=== PATIENT | male | born 1945 | race Caucasian/White ===

== ENCOUNTER 2018-04-08 15:22 | Observation (INO) ==
--- NOTE | 2018-04-08 15:43 | Emergency Department Note ---
Disposition Clinical Impression: Numbness and tingling in left hand, Elevated creatine kinase Disposition: Admitted As Inpatient Condition: Good Forms: ED Satisfaction Letter Time of Disposition: 17:21 Neuro HPI - General Chief Complaint: ED Neuro Symptoms/Deficit Stated Complaint: possible TIA Time Seen by Provider: 04/08/18 15:28 Source: patient, EMS Mode of arrival: ambulatory Limitations: no limitations Nursing Notes Reviewed: Yes Vital Signs Reviewed: Yes - History of Present Illness HPI Narrative: Patient is a 73-year-old male with past medical history of hypertension, hyperlipidemia, previous SC, endarterectomy and carotid stent placement, A. shannan , currently on Eliquis, previous CVA. Presents today due to concern for possible TIA. He states that he was up this morning, drinking coffee, was sitting down, started having some tingling in his left pointer finger. This progressed to all fingers of the left hand. Denies any additional numbness, tingling, weakness anywhere else. During that time, he also had some left shoulder pain. Denies any recent falls, injuries, chest pain, shortness breath , nausea, vomiting, fevers, diarrhea, abdominal pain. Denies any new slurred speech or facial droop. He does have a history of a previous CVA that has left him with chronic left-sided facial droop. This is not worse than usual. He also admits to mild generalized headache that started around the same time as the nuerologic symptoms. His was present and believes that she did not notice any confusion, difficulty with speech or any worsening of his facial droop. He states that this episode lasted about 30 minutes and then went away. He does note that he has some mild chronic pain in the left shoulder but has never had any symptoms like this before. He denies any recurrence of these symptoms. He was referred here with concern for possible TIA. - Related Data Allergies/Adverse Reactions: Allergies Allergy/AdvReac Type Severity Reaction Status Date / Time codeine Allergy See Verified 04/08/18 15:29 Comments Procaine [From Novocain] Allergy See Verified 04/08/18 15:29 Comments All systems ED: reviewed and negative except as stated. Constitutional: Denies: fever Cardiovascular: Denies: chest pain Respiratory: Denies: cough, dyspnea, wheezes Gastrointestinal: Denies: abdominal pain, nausea, vomiting, diarrhea Integumentary: Denies: rash Neurological: Reports: numbness, paresthesias. Denies: headache, weakness Past Medical History - Past Medical History Attestation: Yes The following information was validated with the patient. Source: patient Medical history: Reports: atrial fibrillation, CVA, diabetes, hyperlipidemia, hypertension, myocardial infarction, renal disease, TIA Psychiatric history: Reports: no psych history - Social History Smoking Status: Former smoker Alcohol use: Reports: none Drug use: Reports: none Physical Exam - General Limitations: no limitations General appearance: alert, in no apparent distress - Head Head exam: atraumatic, normocephalic, normal inspection - Eye Eye exam: Present: PERRL, EOMI, other (chronic left eye and nasolabial droop) - ENT ENT exam: normal oropharynx, mucous membranes moist - Neck Neck exam: Present: normal inspection, full ROM, trachea midline. Absent: tenderness, meningismus - Chest Chest inspection: Present: normal inspection, symmetric chest wall rise - Respiratory Respiratory exam: Present: normal lung sounds bilaterally - Cardiovascular Cardiovascular exam: Present: regular rate, normal rhythm, normal heart sounds - Abdominal Exam Abdominal exam: Present: soft, Non-Tender. Absent: tenderness, distention, guarding, rebound, rigidity - Extremities Exam Extremities exam: Present: normal inspection, full ROM. Absent: tenderness, pedal edema - Neurological Exam Neurological exam: Present: alert, oriented X3, CN II-XII intact. Absent: motor sensory deficit - Expanded Neurological Exam Patient oriented to: Present: person, place, time Speech: Present: fluid speech Cranial nerves: EOM function (II, III, IV, ): Normal, facial sensation (V): Normal, facial palsy (VII): Abnormal Left (CHRONIC FOR PATIENT, left facial droop), spinal accessory function (XI): Normal, tongue deviation (XII): Normal Cerebellar function: finger to nose: Normal Motor strength - LUE: 5/5 Motor strength - RUE: 5/5 Motor strength - LLE: 5/5 Motor strength - RLE: 5/5 Sensory exam upper extremity: light touch: Normal Sensory exam lower extremity: light touch: Normal Coma Scale Eye Opening: Spontaneous Coma Scale Motor Response: Obeys Commands Coma Scale Verbal Response: Oriented Coma Scale Total: 15 - Psychiatric Psychiatric exam: Present: normal affect, normal mood - Skin Skin exam: Present: warm, dry, intact, normal color Course Course Narrative: Patient was mildly hypertensive on presentation. Otherwise, the rest of the vitals within normal limits. Physical exam showed no new focal neurologic deficits. He does have a chronic left eye and nasolabial droop from previous stroke. This is not worse than usual per patient and . Specifically normal neuro and vascular exam of the left upper extremity. No current symptoms. Currently concern for TIA. We will perform CT the head, will also perform basic blood work, EKG, troponin, chest x-ray. Patient is on Eliquis and took aspirin this morning. We will hold any additional aspirin at this time. Even if workup is negative, we will admit for further TIA workup. 17:18 basic blood work shows no major concerning abnormalities. Creat was mildly elevated. There is no previous creatinine, unsure if this is patient's baseline or not. Will give fluids. Troponin negative. Chest x-ray negative for any acute cardiopulmonary process. Head CT negative for any acute intracranial process. We will proceed with admission for further TIA workup. Patient agreeable with this plan. Chest X-Ray 04/08/18 15:41 IMPRESSION: 1. No radiographic evidence of acute intrathoracic abnormality. 2. Hypoventilatory changes. D/ / Jay Roy MD / Jay Roy MD Interpreting Provider: Jay Roy MD Head CT 04/08/18 15:42 IMPRESSION: No acute intracranial abnormality. Diffuse atrophic changes with findings suggesting chronic microvascular ischemia D/ / Hemal Spencer MD / Hemal Spencer MD Interpreting Provider: Hemal Spencer MD Vital Signs Temperature 98.3 F 04/08/18 15:29 Pulse Rate 77 04/08/18 15:29 Respiratory Rate 16 04/08/18 15:29 Blood Pressure 180/110 04/08/18 15:29 O2 Sat by Pulse Oximetry 97 04/08/18 15:29 Temperature 98.3 F 04/08/18 15:29 Pulse Rate 77 04/08/18 16:51 Respiratory Rate 20 04/08/18 16:51 Blood Pressure 142/96 04/08/18 16:51 O2 Sat by Pulse Oximetry 97 04/08/18 16:51 Oxygen Delivery Oxygen Delivery Room Air Neuro Symptoms/Deficit - [facility] Narrative Medical decision making narrative: Patient was mildly hypertensive on presentation. Otherwise, the rest of the vitals within normal limits. Physical exam showed no new focal neurologic deficits. He does have a chronic left eye and nasolabial droop from previous stroke. This is not worse than usual per patient and . Specifically normal neuro and vascular exam of the left upper extremity. No current symptoms. Currently concern for TIA. We will perform CT the head, will also perform basic blood work, EKG, troponin, chest x-ray. Patient is on Eliquis and took aspirin this morning. We will hold any additional aspirin at this time. Even if workup is negative, we will admit for further TIA workup. 17:18 basic blood work shows no major concerning abnormalities. Creat was mildly elevated. There is no previous creatinine, unsure if this is patient's baseline or not. Will give fluids. Troponin negative. Chest x-ray negative for any acute cardiopulmonary process. Head CT negative for any acute intracranial process. We will proceed with admission for further TIA workup. Patient agreeable with this plan. - Medical Records Medical records reviewed: Yes I reviewed the patient's medical records. - Lab Data Lab results reviewed: Yes I reviewed the patient's lab results. Result diagrams: 04/08/18 16:07 04/08/18 16:07 Lab Results 04/08/18 04/08/18 04/08/18 Range/Units 16:07 16:07 16:07 WBC 7.1 (4.3-11.1) K/mcL RBC 4.21 (4.19-5.50) M/mcL Hgb 13.1 (12.9-16.9) g/dL Hct 38.0 (37.5-50.1) % MCV 90.3 (83.0-100.0) fL MCH 31.1 (28.0-33.3) pg MCHC 34.5 (31.6-35.5) g/dL RDW 13.0 (11.5-14.5) % Plt Count 204 (140-400) K/mcL MPV 10.1 (9.4-12.4) fL Immature Gran % 0.4 (0-4) % Seg Neutrophils % 51.5 % Lymphocytes % 30.9 % Monocytes % 10.1 % Eosinophils % 6.5 % Basophils % 0.6 % Neutrophils # 3.7 (1.6-8.9) K/mcL Lymphocytes # 2.2 (0.6-4.6) K/mcL Monocytes # 0.7 (0.0-1.3) K/mcL Eosinophils # 0.5 (0.0-0.6) K/mcL Basophils # 0.0 (0.0-0.2) K/mcL PT 13.7 H (9.4-12.1) Seconds INR 1.2 APTT 38.4 H (26.0-36.0) Seconds Sodium 136 (136-145) mEq/L Potassium 4.1 (3.5-5.1) mEq/L Chloride 104 (98-107) mEq/L Carbon Dioxide 22 L (23-29) mEq/L BUN 19 (8-23) mg/dL Creatinine 1.40 H (0.70-1.30) mg/dL Est GFR ( Amer) > 60 (> 60) Est GFR (Non-Af Amer) 50 L (> 60) BUN/Creatinine Ratio 14 (6-26) Glucose 153 H (70-105) mg/dL Calculated Osmolality 287 (280-300) Calcium 9.8 (8.6-10.3) mg/dL Troponin I < 0.03 (< 0.04) ng/mL - Radiology Data Radiology results reviewed: Yes I reviewed the patient's radiology results. Chest X-Ray 04/08/18 15:41 IMPRESSION: 1. No radiographic evidence of acute intrathoracic abnormality. 2. Hypoventilatory changes. D/ / Jay Roy MD / Jay Roy MD Interpreting Provider: Jay Roy MD Head CT 04/08/18 15:42 IMPRESSION: No acute intracranial abnormality. Diffuse atrophic changes with findings suggesting chronic microvascular ischemia D/ / Hemal Spencer MD / Hemal Spencer MD Interpreting Provider: Hemal Spencer MD - EKG Data EKG attestation: Yes I reviewed and interpreted this EKG. EKG results narrative: 04/08/2018 at 15:41. Paced rhythm. Heart rate 81. NV 260. QRS 100. QTC 435. Normal axis. No acute ST elevation or depression. NIH Stroke Scale - Level of Consciousness LOC: Alert - LOC Questions LOC Questions: Answers both correctly - LOC Commands LOC Commands: Performs both correctly - Best Gaze Best Gaze: Normal - Visual Visual: No visual loss - Facial Palsy Facial Palsy: Normal (chronic left eye and nasolabial droop) - Motor Arms Motor Arm-Left: No drift for 10 seconds Motor Arm-Right: No drift for 10 seconds - Motor Legs Motor Leg-Left: No drift for 5 seconds Motor Leg-Right: No drift for 5 seconds - Limb Ataxia Limb Ataxia: Absent of affected limb too weak to perform exam - Sensory Sensory: Normal - Best Language Best Language: No aphasia - Dysarthria Dysarthria: Normal - Extinction and Inattention Extinction and Inattention: Normal - NIHSS Total Score NIHSS Total Score: 0 TPA Checklist - LKW: 3-4.5 hrs Add. Warnings/Precautions Patient/family understanding: The patient/family members have been counseled and understood the risk, benefit , and alternatives of treatment. S.B.A.R. - S.B.A.R. Situation: Demographics, MOA Background: Presenting Complaint, Relevant PMH, Meds, & Allergies Assessment: Vital Signs, Course and respsone to treatment, Exam Concerns, Patient/Family Expectation, Pertinant Lab Results Recommendation: Barrier(s) to disposition, Recommendation based on pending studies, treatments, or consults S.B.A.R. Report Given to: Dr. Landa
--- NOTE | 2018-04-08 16:03 | Emergency Department Note ---
Disposition Clinical Impression: Numbness and tingling in left hand Disposition: Still a Patient Forms: ED Satisfaction Letter General Adult HPI - General Chief complaint: ED Neuro Symptoms/Deficit Stated complaint: possible TIA Time Seen by Provider: 04/08/18 15:28 Source: patient, EMS Mode of arrival: ambulatory Limitations: no limitations - History of Present Illness Pain Scale: 0 - Related Data Allergies Allergy/AdvReac Type Severity Reaction Status Date / Time codeine Allergy See Verified 04/08/18 15:29 Comments Procaine [From Novocain] Allergy See Verified 04/08/18 15:29 Comments Past Medical History - Past Medical History Medical history: Reports: atrial fibrillation, CVA, diabetes, hyperlipidemia, hypertension, myocardial infarction, renal disease, TIA Psychiatric history: Reports: no psych history - Social History Smoking Status: Former smoker Alcohol use: Reports: none Drug use: Reports: none Physical Exam - General Limitations: no limitations General appearance: alert, in no apparent distress Course Vital Signs Temperature 98.3 F 04/08/18 15:29 Pulse Rate 77 04/08/18 15:29 Respiratory Rate 16 04/08/18 15:29 Blood Pressure 180/110 04/08/18 15:29 O2 Sat by Pulse Oximetry 97 04/08/18 15:29 Temperature 98.3 F 04/08/18 15:29 Pulse Rate 77 04/08/18 15:29 Respiratory Rate 16 04/08/18 15:29 Blood Pressure 180/110 04/08/18 15:29 O2 Sat by Pulse Oximetry 97 04/08/18 15:29 Oxygen Delivery Oxygen Delivery Room Air Attestation Statement - Attestation Attestation: I examined this patient and my medical decision-making was reviewed with the Resident Physician. I agree with the documented findings, disposition and treatment plan as described except to the extent set forth below. 73-year-old male presents emergency room for left hand numbness. Last parsley half an hour around 10 AM. This stating he was just sitting at the table drinking coffee. Inher leg involvement. No vision changes. No tongue involvement. No motor weakness. No facial droop. Strictly was in the entire left hand and all 5 fingers were numb. He does have a history of carotid stenosis and had a carotid endarterectomy done back in 2004 and had a subsequent stroke after that. He currently is on blood thinners. He did take his daily aspirin. He is asymptomatic at this time. We will workup for TIA symptoms.
[2018-04-08 16:25] LABS: Basophils % 0.6 %; Eosinophils # 0.5 K/mcL (0.0-0.6); Eosinophils % 6.5 %; Hemoglobin 13.1 g/dL (12.9-16.9); Immature Granulocytes % 0.4 % (0-4); Lymphocytes # 2.2 K/mcL (0.6-4.6); Lymphocytes % 30.9 %; Mean Corpuscular HGB Conc 34.5 g/dL (31.6-35.5); Mean Corpuscular Hemoglobin 31.1 pg (28.0-33.3); Mean Corpuscular Volume 90.3 fL (83.0-100.0); Mean Platelet Volume 10.1 fL (9.4-12.4); Monocytes # 0.7 K/mcL (0.0-1.3); Monocytes % 10.1 %; Neutrophils # 3.7 K/mcL (1.6-8.9); Platelet Count 204 K/mcL (140-400); Red Blood Count 4.21 M/mcL (4.19-5.50); Segmented Neutrophils % 51.5 %
[2018-04-08 16:34] LABS: INR 1.2; Prothrombin Time 13.7 Seconds (9.4-12.1)
[2018-04-08 16:37] LABS: Activated Partial Thrombo Time 38.4 Seconds (26.0-36.0)
[2018-04-08 16:45] LABS: BUN/Creatinine Ratio 14 (6-26); Blood Urea Nitrogen 19 mg/dL (8-23); Calcium 9.8 mg/dL (8.6-10.3); Carbon Dioxide 22 mEq/L (23-29); Chloride 104 mEq/L (98-107); Glucose 153 mg/dL (70-105); Osmolality,Calculated 287 (280-300); Potassium 4.1 mEq/L (3.5-5.1); Sodium 136 mEq/L (136-145); eGFR For Non-African Americans 50 (> 60)
[2018-04-08 16:46] LABS: Troponin I < 0.03 ng/mL (< 0.04)
[2018-04-08] MEDS ORDERED: Acetaminophen 325 MG TABLET PO PRN (17:38)
[2018-04-08] MEDS ORDERED: Naloxone 0.4 MG/ML INJ IVP PRN (17:38)
[2018-04-08] MEDS ORDERED: traMADol 50 MG TABLET PO PRN (17:38)
[2018-04-08] MEDS ORDERED: Aspirin 325 MG TABLET PO ONE (17:38)
[2018-04-08] MEDS ORDERED: Dextrose Gel 15 GM/37.5 ML TUBE PO PRN ×2 (17:41)
[2018-04-08] MEDS ORDERED: *HR* Dextrose 50 % in Water (Syg) 50 ML SYRINGE IVP PRN (17:41)
[2018-04-08] MEDS ORDERED: D5% in Water 1,000 ML IVC PRN (17:41)
[2018-04-08] MEDS: 0.9 % Sodium Chloride 1,000 ML IVC SCH (17:44)
--- NOTE | 2018-04-08 17:49 | Internal Med History&Physical ---
<Brandi Vieira - Last Filed: 04/08/18 18:04> Date of Encounter: 04/08/18 Time of Encounter: 17:47 Internal Medicine - H&P: HPI Admitted From: Home Plans for Post Hospital Care: Home History of present illness: Mr. Gaxiola is a 73 year old male with past medical history of hypertension, hyperlipidemia, previous DE (Pacer and ICD), endarterectomy and carotid stent placement, A. fib, currently on Eliquis, previous CVA. Presents today due to concern for possible TIA. He states that he was up this morning, drinking coffee, was sitting down, started having some tingling in his left pointer finger. This progressed to all fingers of the left hand. Denies any additional numbness, tingling, weakness anywhere else. During that time, he also had some left shoulder pain. Denies any recent falls, injuries, chest pain, shortness breath, nausea, vomiting, fevers, diarrhea, abdominal pain. Denies any new slurred speech or facial droop. He does have a history of a previous CVA that has left him with chronic left-sided facial droop. This is not worse than usual. He also admits to mild generalized headache that started around the same time as the neurologic symptoms. His was present and believes that she did not notice any confusion, difficulty with speech or any worsening of his facial droop. He states that this episode lasted about 30 minutes and then went away. He does note that he has some mild chronic pain in the left shoulder but has never had any symptoms like this before. He denies any recurrence of these symptoms. Pt will be admitted for possible TIA. Past Med Surg Social Fam HX - Past Medical History Medical history: atrial fibrillation, CVA, diabetes, hyperlipidemia, hypertension, myocardial infarction, renal disease, TIA Psychiatric history: no psych history - Social History Smoking Status: Former smoker Alcohol use: none Drug use: none Internal Medicine - H&P: Meds 3 Allergy/AdvReac Type Severity Reaction Status Date / Time codeine Allergy See Verified 04/08/18 15:29 Comments Procaine [From Novocain] Allergy See Verified 04/08/18 15:29 Comments All Systems PM: A 10-system review of systems was performed and is negative for pertinent findings except as documented above in the HPI. Review of systems: REVIEW OF SYSTEMS: CONSTITUTIONAL: No weight loss, fever, chills, weakness or fatigue. HEENT: Eyes: No visual loss, blurred vision, double vision or yellow sclerae. Ears, Nose, Throat: No hearing loss, sneezing, congestion, runny nose or sore throat. SKIN: No rash or itching. CARDIOVASCULAR: No chest pain, chest pressure or chest discomfort. No palpitations or edema. RESPIRATORY: No shortness of breath, cough or sputum. GASTROINTESTINAL: No anorexia, nausea, vomiting or diarrhea. No abdominal pain or blood. GENITOURINARY: No dysuria, urgency, or frequency. NEUROLOGICAL: see HPI. MUSCULOSKELETAL: No muscle, back pain, joint pain or stiffness. HEMATOLOGIC: No anemia, bleeding or bruising. LYMPHATICS: No enlarged nodes. No history of splenectomy. PSYCHIATRIC: No history of depression or anxiety. ENDOCRINOLOGIC: No reports of sweating, cold or heat intolerance. No polyuria or polydipsia. - Constitutional Vitals: Temp Pulse Resp BP Pulse Ox 98.3 F 79 16 161/84 97 04/08/18 15:29 04/08/18 17:44 04/08/18 17:44 04/08/18 17:44 04/08/18 16:51 General appearance: Present: cooperative, A&O X 3, answers questions appropriately Exam: PHYSICAL EXAMINATION: GENERAL APPEARANCE: The patient is alert, oriented and in no acute distress. HEENT: Head is normocephalic. The sinuses are nontender. Pupils are equal and reactive. The nares are patent. Oropharynx clear without lesions. NECK: Supple without lymphadenopathy. HEART: Regular rate and rhythm. LUNGS: No crackles or wheezes are heard. ABDOMEN: Soft, nontender, nondistended with good bowel sounds heard. Inguinal area is normal. EXTREMITIES: Without cyanosis, clubbing or edema. NEUROLOGICAL: Gross nonfocal. SKIN: Warm and dry without any rash. Internal Med - H&P Results - Labs CBC & Chem 7: 04/08/18 16:07 04/08/18 16:07 - Assessment and plan (1) Numbness and tingling in left hand Current Visit: Yes Status: Acute Assessment and plan: 73-year-old male with previous CVA and several CV risk factors including hypertension, hyperlipidemia, diabetes, and CKD presented with a brief period of numbness and tingling at the right hand. He had a history of bilateral carotid stenosis, underwent right endarterectomy in 2004 and the left side carotid stent placement in 2018. He also had a stroke in 2004 shortly after the endarterectomy. His symptoms lasted about 30 minutes, completely resolved upon arrival to the ED. - Patient symptoms are concerning for TIA. He had no new neuro deficit on physical exam. Labs were significant for elevated creatinine. CT head was negative for acute abnormalities. - We will start TIA workup including telemetry monitoring, MR brain, carotid Doppler, and echocardiogram. - We will repeat A1c and lipid panel. - PT/OT, and speech therapy consult. (2) CKD (chronic kidney disease) Current Visit: No Status: Chronic Assessment and plan: Patient known to have chronic kidney disease, he regularly follow up with nephrology. Creatinine 1.4 today, no baseline data to compare. Qualifiers: Chronic kidney disease stage: stage 2 (mild) Qualified Code(s): N18.2 - Chronic kidney disease, stage 2 (mild) (3) History of CVA (cerebrovascular accident) Current Visit: Yes Status: Acute Assessment and plan: Patient had a remote history of was CVA, he is on daily aspirin, Eliquis, and statins at home. (4) CAD (coronary artery disease) Current Visit: No Status: Chronic Assessment and plan: Patient has a history of CAD, status post pacemaker/ICD placement. He has no chest pain. We will continue home medication including aspirin. Qualifiers: Coronary Disease-Associated Artery/Lesion type: [place] artery [place] vs. transplanted heart: [place] heart Associated angina: without angina Qualified Code(s): I25.10 - Atherosclerotic heart disease of [place] coronary artery without angina pectoris (5) Chronic a-fib Current Visit: No Status: Chronic Assessment and plan: Rate controlled, continue home medication including Eliquis. (6) Diabetes mellitus Current Visit: No Status: Chronic Assessment and plan: Continue home basal insulin, starting insulin sliding scale. 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 Qualifiers: Hypertension type: essential hypertension Qualified Code(s): I10 - Essential (primary) hypertension (8) Hyperlipidemia Current Visit: No Status: Chronic Assessment and plan: Continue home medication. Qualifiers: Hyperlipidemia type: pure hypercholesterolemia Qualified Code(s): E78.00 - Pure hypercholesterolemia, unspecified; E78.0 - Pure hypercholesterolemia (9) DVT prophylaxis Current Visit: Yes Status: Acute Assessment and plan: Continue Eliquis. - Time Spent With Patient Total time spent is greater than 50% in coordination of care (as documented) at patient's floor/unit and/or counseling patient: Greater than 35 minutes <Jay Landa - Last Filed: 04/08/18 18:38> Date of Encounter: 04/08/18 Internal Medicine - H&P: HPI History of present illness: Mr. Gaxiola is a 73 year old male All Systems PM: A 10-system review of systems was performed and is negative for pertinent findings except as documented above in the HPI. - Constitutional Vitals: Temp Pulse Resp BP Pulse Ox 98.1 F 80 16 152/64 96 04/08/18 18:15 04/08/18 18:15 04/08/18 18:15 04/08/18 18:15 04/08/18 18:15 Internal Med - H&P Results - Labs CBC & Chem 7: 04/08/18 16:07 04/08/18 16:07 - Assessment and plan (1) Numbness and tingling in left hand Current Visit: Yes Status: Acute (2) CKD (chronic kidney disease) Current Visit: No Status: Chronic Qualifiers: Chronic kidney disease stage: stage 2 (mild) Qualified Code(s): N18.2 - Chronic kidney disease, stage 2 (mild) (3) History of CVA (cerebrovascular accident) Current Visit: Yes Status: Acute (4) CAD (coronary artery disease) Current Visit: No Status: Chronic Qualifiers: Coronary Disease-Associated Artery/Lesion type: [place] artery [place] vs. transplanted heart: [place] heart Associated angina: without angina Qualified Code(s): I25.10 - Atherosclerotic heart disease of [place] coronary artery without angina pectoris (5) Chronic a-fib Current Visit: No Status: Chronic (6) Diabetes mellitus Current Visit: No Status: Chronic Qualifiers: Diabetes mellitus type: type 2 Diabetes mellitus [facility] insulin use: with [facility] use Diabetes mellitus complication status: with other specified complication Qualified Code(s): E11.69 - Type 2 diabetes mellitus with other specified complication; Z79.4 - [facility] (current) use of insulin (7) HTN (hypertension) Current Visit: No Status: Chronic Qualifiers: Hypertension type: essential hypertension Qualified Code(s): I10 - Essential (primary) hypertension (8) Hyperlipidemia Current Visit: No Status: Chronic Qualifiers: Hyperlipidemia type: pure hypercholesterolemia Qualified Code(s): E78.00 - Pure hypercholesterolemia, unspecified; E78.0 - Pure hypercholesterolemia (9) DVT prophylaxis Current Visit: Yes Status: Acute - Time Spent With Patient Total time spent is greater than 50% in coordination of care (as documented) at patient's floor/unit and/or counseling patient: - Attending Attestation I have seen and examined the patient with RETAIL STORE ASSOCIATE Dariel Paz and agree with his/ her assessment and plan. 73-year-old male with history of A. fib on L gross, CVA status post endarterectomy and carotid stents, presented to the ED with 30 minute history of left hand numbness. Completely resolved at the time of my exam. Afebrile, hemodynamically stable, no new focal deficits noted on exam except for chronic left-sided facial droop. Labs were unremarkable. CT head did not show any acute intracranial processes. Unable to get MRI due to his pacemaker. Will obtain carotid Doppler and echocardiogram. Resume home meds including aspirin and Eliquis. Jay Landa MD
[2018-04-08] MEDS: Insulin LISPRO 300 UNITS/3 ML VIAL SQ SCH (20:33)
[2018-04-08] MEDS ORDERED: Apixaban 5 MG TABLET PO SCH (21:00)
[2018-04-08] MEDS ORDERED: Nitroglycerin 0.4 MG TAB.SUBL SL PRN (21:38)
[2018-04-08] MEDS ORDERED: GuaiFENesin Liq 200 MG/10 ML UDC PO PRN (21:38)
[2018-04-09] MEDS: 0.9 % Sodium Chloride 1,000 ML IVC SCH ×2 (01:31→08:05)
[2018-04-09 03:53] LABS: Basophils % 0.6 %; Eosinophils # 0.5 K/mcL (0.0-0.6); Eosinophils % 6.8 %; Hematocrit 36.6 % (37.5-50.1); Hemoglobin 12.6 g/dL (12.9-16.9); Immature Granulocytes % 0.3 % (0-4); Lymphocytes # 2.4 K/mcL (0.6-4.6); Lymphocytes % 34.4 %; Mean Corpuscular HGB Conc 34.4 g/dL (31.6-35.5); Mean Corpuscular Hemoglobin 31.1 pg (28.0-33.3); Mean Corpuscular Volume 90.4 fL (83.0-100.0); Monocytes # 0.8 K/mcL (0.0-1.3); Monocytes % 10.7 %; Neutrophils # 3.4 K/mcL (1.6-8.9); Platelet Count 201 K/mcL (140-400); Red Blood Count 4.05 M/mcL (4.19-5.50); Red Cell Distribution Width 12.9 % (11.5-14.5); Segmented Neutrophils % 47.2 %
[2018-04-09 04:12] LABS: Albumin/Globulin Ratio 1.5 (1.1-2.2); Bilirubin,Total 0.4 mg/dL (0.3-1.0); Calcium 9.3 mg/dL (8.6-10.3); Chol/HDL Ratio 5.3 (0-4.9); Globulin 2.6 g/dL (2.4-3.5); Magnesium 1.9 mg/dL (1.6-2.6); Potassium 3.8 mEq/L (3.5-5.1); Total Protein 6.6 g/dL (6.4-8.9)
[2018-04-09 07:26] LABS: Estimated Average Glucose 206 mg/dl; Hemoglobin A1C 8.8 %
[2018-04-09] MEDS: Apixaban 5 MG TABLET PO SCH ×2 (08:00→20:23)
[2018-04-09] MEDS: Fenofibrate 54 MG TABLET PO SCH (08:01)
[2018-04-09] MEDS: Loratadine 10 MG TABLET PO SCH (08:01)
[2018-04-09] MEDS: Isosorbide MONOnitrate (24 HR) 30 MG TAB.ER.24H PO SCH (08:01)
[2018-04-09] MEDS: Cholecalciferol (D-3) 1,000 UNIT TABLET PO SCH (08:01)
[2018-04-09] MEDS: Aspirin Enteric Coated 81 MG Tablet PO SCH (08:01)
[2018-04-09] MEDS: Insulin LISPRO 300 UNITS/3 ML VIAL SQ SCH ×4 (08:02→20:23)
[2018-04-09] MEDS: OMEGA ACID ETHYL ESTERS PO SCH (08:03)
[2018-04-09] MEDS ORDERED: amLODIPine 5 MG TABLET PO SCH (09:00)
--- NOTE | 2018-04-09 11:03 | Internal Med Progress Note ---
Hospitalist Progress Note - Encounter Date of Encounter: 04/09/18 Time of Encounter: 11:01 - Subjective Interval History: Patient seen and examined at bedside. Patient no acute overnight events. Patient has no recurrence of symptoms. Patient denies any chest pain, shortness breath, nausea, neck, diarrhea. Patient states that the numbness and tingling in his left hand and heaviness in his left arm is resolved. Discussed with patient at length about his risk factors for CVA and patient is agreeable to stay additional night for continued observation given his high risk of CVA after TIA. - Exam Vitals: Temp Pulse Resp BP Pulse Ox 98.0 F 76 20 162/82 94 04/09/18 07:20 04/09/18 07:20 04/09/18 07:20 04/09/18 07:20 04/09/18 07:20 Exam: Constitutional: No acute distress, Alert Psych: AAO x 3 HEENT: NCAT Neck: supple, no JVD, bilateral scars from left carotid stenting and right carotid endarterectomy Cardio: regular rate and rhythm, +s1s2, no murmurs Resp: Faint bibasilar crackles Abd: soft, non tender/non distended, positive bowel sounds Extremities: no clubbing/cyanosis/edema appreciated Neuro: Slight left-sided facial droop which is chronic. No sensory deficits appreciated, no motor deficits appreciated cranial nerves II-12 grossly intact. Lymph: no cervical/supraclavicular adenopahty apprecitated - Assessment and Plan (1) TIA (transient ischemic attack) Current Visit: Yes Status: Acute Assessment and Plan: -Patient with left-sided arm heaviness with numbness of left hand; symptoms resolved in less than 24 hours -ABCD2 score of 6 makes patient high risk for CVA -Continue observation overnight -Ultrasound carotids pending although the patient has known stenosis and occlusion of the right carotid artery with history of CVA with subsequent occlusion and recent stenting of left carotid artery -Continue risk factor modification with adequate blood pressure control and glycemic control -will increase Norvasc -A1c is 8.8 continue taking glycemic control patient on extensive diabetic regimen -We will start statin; patient reports being on statin in the past but unsure why he was taken off and is agreeable to restart we will start high intensity statin per guidelines -History of CVA after right-sided carotid endarterectomy with residual slight left facial droop -2-D echocardiogram pending hopefully obtained today or in a.m. and follow up with results with primary care physician patient is already on Eliquis -Anticipate discharge home in a.m. pending no recurrence of symptoms (2) CKD (chronic kidney disease) Current Visit: No Status: Chronic Assessment and Plan: -Patient reports chronic kidney disease is unsure of his baseline creatinine or stage although he states stage III sounds somewhat familiar -Serum creatinine 1.45 today 1.40 on admission -Continue current medications avoid new nephrotoxins -Monitor a.m. BMP (3) History of CVA (cerebrovascular accident) Current Visit: Yes Status: Acute Assessment and Plan: -Patient had a remote history of was CVA -Continue aspirin and statin -Continue antihypertensives and glycemic control medications (4) CAD (coronary artery disease) Current Visit: No Status: Chronic Assessment and Plan: -Patient has a history of CAD, status post pacemaker/ICD placement -He has no chest pain. -We will continue home medication including aspirin, bb, arb (5) Chronic a-fib Current Visit: Yes Status: Chronic Assessment and Plan: -Rate controlled -Continue beta polly -Continue Eliquis (6) Diabetes mellitus Current Visit: Yes Status: Chronic Assessment and Plan: -Continue home basal insulin -Sliding scale insulin coverage -To Accu-Cheks -Hemoglobin A1c 8.8% (7) HTN (hypertension) Current Visit: Yes Status: Chronic Assessment and Plan: -Remains somewhat hypertensive -Increase Norvasc -continue Polly and ARB -monitor blood pressure (8) Hyperlipidemia Current Visit: No Status: Chronic Assessment and Plan: -Continue home medication -Start statin, patient agreeable; 40 mg of Lipitor daily (9) DVT prophylaxis Current Visit: Yes Status: Acute Assessment and Plan: -Eliquis DVT Prophylaxis: -Eliquis - Summary of Assessment and Plan Summary of Assessment and Plan: Given the patient's high ABCD score after TIA recommended to 48 hours of observation and the patient is agreeable; increase Norvasc and start statin continue aspirin and Eliquis - needs continued risk factor modifications with control of his diabetes and hypertension - Time Spent with Patient Total time spent is greater than 50% in coordination of care (as documented) at patient's floor/unit and/or counseling patient: 25 - 35 minutes Plan of Care Discussed with: patient Internal Medicine: Result - Labs CBC & Chem 7: 04/09/18 03:31 04/09/18 03:31 Labs: Short CBC 04/09/18 Range/Units 03:31 WBC 7.1 (4.3-11.1) K/mcL Hgb 12.6 L (12.9-16.9) g/dL Hct 36.6 L (37.5-50.1) % Plt Count 201 (140-400) K/mcL Neutrophils # 3.4 (1.6-8.9) K/mcL BMP 04/09/18 03:31 Sodium 137 Potassium 3.8 Chloride 106 Carbon Dioxide 22 L BUN 17 Creatinine 1.45 H Glucose 150 H Calcium 9.3 Liver Function 04/09/18 Range/Units 03:31 Total Bilirubin 0.4 (0.3-1.0) mg/dL AST 13 (13-39) Units/L ALT 17 (7-52) Units/L Alkaline Phosphatase 29 L (34-104) Units/L Albumin 4.0 (3.5-5.7) g/dL - ABG Interpretation ABG results: PT/INR, D-dimer PT 13.7 Seconds (9.4-12.1) H 04/08/18 16:07 Consult Discharge Plan - Plan [facility]errals: [facility] [Primary Care Provider[facility] - Kanchan Spivey MD [Family Provider] - (2) CKD (chronic kidney disease) Qualifiers: Chronic kidney disease stage: stage 2 (mild) Qualified Code(s): N18.2 - Chronic kidney disease, stage 2 (mild) (4) CAD (coronary artery disease) Qualifiers: Coronary Disease-Associated Artery/Lesion type: [place] artery [place] vs. transplanted heart: [place] heart Associated angina: without angina Qualified Code(s): I25.10 - Atherosclerotic heart disease of [place] coronary artery without angina pectoris (6) Diabetes mellitus Qualifiers: Diabetes mellitus type: type 2 Diabetes mellitus keno terminal operator insulin use: with [facility] use Diabetes mellitus complication status: with other specified complication Qualified Code(s): E11.69 - Type 2 diabetes mellitus with other specified complication; Z79.4 - intermediate (current) use of insulin (7) HTN (hypertension) Qualifiers: Hypertension type: essential hypertension Qualified Code(s): I10 - Essential (primary) hypertension (8) Hyperlipidemia Qualifiers: Hyperlipidemia type: pure hypercholesterolemia Qualified Code(s): E78.00 - Pure hypercholesterolemia, unspecified; E78.0 - Pure hypercholesterolemia
[2018-04-09] MEDS ORDERED: amLODIPine 5 MG TABLET PO ONE (11:15)
[2018-04-09] MEDS ORDERED: NON-FORMULARY MEDICATION 1 EACH EACH (Insulin Glargine,Hum.Rec.Anlog [Basaglar Kwikpen U-1 SQ SCH (21:00)
[2018-04-09] MEDS ORDERED: Insulin DETEMIR 100 UNIT/ML X5UNITS SQ SCH (21:00)
[2018-04-10 05:40] LABS: BUN/Creatinine Ratio 13 (6-26); Blood Urea Nitrogen 18 mg/dL (8-23); Calcium 9.5 mg/dL (8.6-10.3); Carbon Dioxide 24 mEq/L (23-29); Chloride 106 mEq/L (98-107); Glucose 90 mg/dL (70-105); Osmolality,Calculated 291 (280-300); Potassium 3.6 mEq/L (3.5-5.1); Sodium 140 mEq/L (136-145); eGFR For Non-African Americans 52 (> 60)
[2018-04-10 06:47] VITALS: BP 144/68
[2018-04-10] MEDS: Insulin LISPRO 300 UNITS/3 ML VIAL SQ SCH (08:06)
--- NOTE | 2018-04-10 08:13 | Discharge Summary ---
- NOTES TO OUTPATIENT PROVIDER Notes to Outpatient Provider: Mr. Gaxiola is pleasant 73-year-old gentleman with significant atherosclerotic vascular disease and prior CVA who presents with a TIA involving numbness and weakness of his left hand and arm. The patient was placed in observation and had no recurrence of his symptoms. Patient had 2-D echocardiogram which was unremarkable for etiology of TIA; also had ultrasound carotids which revealed known right-sided occlusion and left sided stenosis of 50-69% patient reports that left-sided stenosis was 90% prior to recent stenting. Patient was started on statin and will be discharged with new prescription. Hemoglobin A1c is 8.8% and would benefit from tighter glycemic control. Patient was hypertensive which improved throughout his stay with up titration of his Norvasc will be given a new prescription for this as well. Patient instructed to follow-up with primary care physician within one week as well as with routine follow-up with his long wall shear operator and vascular surgeon. Patient reports chronic kidney disease but unsure of baseline serum creatinine this hospitalization was between 1.45 and will be discharge at 1.34; recommend having BMP checked within one week at follow-up visit with PCP. Patient to continue aspirin and Eliquis as well. Patient instructed to return to the ER immediately for any recurrence of symptoms or new or worsening neurological symptoms. Patient is stable and agreeable to discharge on 04/10/2018 in stable condition. All questions answered. Date of Encounter: 04/10/18 Time of Encounter: 08:09 - Discharge Diagnosis (1) TIA (transient ischemic attack) Priority: Primary Status: Acute (2) CKD (chronic kidney disease) Priority: Secondary Status: Chronic Qualifiers: Chronic kidney disease stage: stage 2 (mild) Qualified Code(s): N18.2 - Chronic kidney disease, stage 2 (mild) (3) History of CVA (cerebrovascular accident) Priority: Secondary Status: Acute (4) CAD (coronary artery disease) Priority: Secondary Status: Chronic Qualifiers: Coronary Disease-Associated Artery/Lesion type: [place] artery [place] vs. transplanted heart: [place] heart Associated angina: without angina Qualified Code(s): I25.10 - Atherosclerotic heart disease of [place] coronary artery without angina pectoris (5) Chronic a-fib Priority: Secondary Status: Chronic (6) Diabetes mellitus Priority: Secondary Status: Chronic Qualifiers: Diabetes mellitus type: type 2 Diabetes mellitus [facility] insulin use: with [facility] use Diabetes mellitus complication status: with other specified complication Qualified Code(s): E11.69 - Type 2 diabetes mellitus with other specified complication; Z79.4 - terminal superintendent (current) use of insulin (7) HTN (hypertension) Priority: Secondary Status: Chronic Qualifiers: Hypertension type: essential hypertension Qualified Code(s): I10 - Essential (primary) hypertension (8) Hyperlipidemia Priority: Secondary Status: Chronic Qualifiers: Hyperlipidemia type: pure hypercholesterolemia Qualified Code(s): E78.00 - Pure hypercholesterolemia, unspecified; E78.0 - Pure hypercholesterolemia (9) DVT prophylaxis Priority: Secondary Status: Acute Hospital course: Mr. Gaxiola is pleasant 73-year-old gentleman with significant atherosclerotic vascular disease and prior CVA who presents with a TIA involving numbness and weakness of his left hand and arm. The patient was placed in observation and had no recurrence of his symptoms. Patient had 2-D echocardiogram which was unremarkable for etiology of TIA; also had ultrasound carotids which revealed known right-sided occlusion and left sided stenosis of 50-69% patient reports that left-sided stenosis was 90% prior to recent stenting. Patient was started on statin and will be discharged with new prescription. Hemoglobin A1c is 8.8% and would benefit from tighter glycemic control. Patient was hypertensive which improved throughout his stay with up titration of his Norvasc will be given a new prescription for this as well. Patient instructed to follow-up with primary care physician within one week as well as with routine follow-up with his long wall shear operator and vascular surgeon. Patient reports chronic kidney disease but unsure of baseline serum creatinine this hospitalization was between 1.45 and will be discharge at 1.34; recommend having BMP checked within one week at follow-up visit with PCP. Patient to continue aspirin and Eliquis as well. Patient instructed to return to the ER immediately for any recurrence of symptoms or new or worsening neurological symptoms. Patient is stable and agreeable to discharge on 04/10/2018 in stable condition. All questions answered. Discharge discussed with: patient, nurse - Time Spent with Patient Total time spent providing and/or coordinating discharge services: Less than 30 minutes - Discharge Medications Prescriptions: amLODIPine [Norvasc] 5 mg PO DAILY 30 Days #30 tablet Atorvastatin [Lipitor] 40 mg PO HS 30 Days #30 tablet Home Medications: Albuterol Sulfate [Albuterol Inhaler] 2 puff IH TID PRN 04/08/18 [History] Apixaban [Eliquis] 5 mg PO BID 04/08/18 [History] Aspirin 81 mg PO DAILY 04/08/18 [History] Cetirizine HCl [All Day Allergy] 5 mg PO DAILY 04/08/18 [History] Cholecalciferol (Vitamin D3) [Children's Vitamin D3] 2,000 mg PO DAILY 04/08/18 [History] Fenofibrate Nanocrystallized [Fenofibrate] 145 mg PO DAILY 04/08/18 [History] Guaifenesin [Cough Syrup] 100 mg PO Q4HR PRN 04/08/18 [History] Insulin Glargine,Hum.rec.anlog [Basaglar Kwikpen U-100] 86 unit SQ HS 04/08/18 [ History] Isosorbide MONOnitrate [Isosorbide Mononitrate] 30 mg PO DAILY 04/08/18 [History ] Losartan [Cozaar] 75 mg PO DAILY 04/08/18 [History] Metformin HCl [Glucophage] 1,000 mg PO BID 04/08/18 [History] Metoprolol Tartrate [Lopressor] 50 mg PO BID 04/08/18 [History] Mineral Oil, Light/Mineral Oil [Soothe Xp Eye Drops] 15 ml PO HS 04/08/18 [ History] Nitroglycerin [Nitrostat] 0.4 mg SL PRN PRN 04/08/18 [History] [place]-3 Acid Ethyl Esters 4 cap PO DAILY 04/08/18 [History] Omeprazole [PriLOSEC] 20 mg PO BID 04/08/18 [History] Tamsulosin HCl [Flomax] 0.4 mg PO BID 04/08/18 [History] glipiZIDE [Glipizide] 20 mg PO BID 04/08/18 [History] guaiFENesin [Guaifenesin] 200 mg PO TID PRN 04/08/18 [History] Atorvastatin [Lipitor] 40 mg PO HS 30 Days #30 tablet 04/10/18 [Rx] amLODIPine [Norvasc] 5 mg PO DAILY 30 Days #30 tablet 04/10/18 [Rx] Allergies/Adverse Reactions: 3 Allergy/AdvReac Type Severity Reaction Status Date / Time codeine Allergy See Verified 04/08/18 15:29 Comments Procaine [From Novocain] Allergy See Verified 04/08/18 15:29 Comments Date of admission: 04/08/18 17:33 [facility] care physician[facility] Consults: 04/08/18 17:44 PT [Consult to Physical Therapy] [CONS] Routine Comment: Evaluate, develop and implement POC Reason for Consult: TIA Does patient have active BEDREST order?: No Is patient medically & hemodynamically stable?: Yes Patient assessed for mobility or mobilized this visit?: No 04/08/18 17:53 Consult to Occupational Therapy [CONS] Routine Comment: Evaluate, develop and implement POC Reason for Consult: CVA rule out Does patient have active BEDREST order?: No Is patient medically & hemodynamically stable?: Yes Patient assessed for mobility or mobilized this visit?: No - Constitutional Vitals: Temp Pulse Resp BP Pulse Ox 98.0 F 71 18 144/68 95 04/10/18 06:46 04/10/18 06:46 04/10/18 06:46 04/10/18 06:46 04/10/18 06:46 General appearance: Present: cooperative, A&O X 3, answers questions appropriately Exam: Constitutional: No acute distress, Alert Psych: AAO x 3 HEENT: NCAT Neck: supple, no JVD, bilateral scars from left carotid stenting and right carotid endarterectomy Cardio: regular rate and rhythm Resp: Faint bibasilar crackles Abd: soft, non tender/non distended Extremities: no clubbing/cyanosis/edema appreciated Neuro: Slight left-sided facial droop which is chronic. No sensory deficits appreciated, no motor deficits appreciated cranial nerves II-12 grossly intact. Lymph: no adenopahty apprecitated - Patient Status Disposition: Home, Self-Care Condition: Good Functional capacity at discharge: independent ambulation Overall status at discharge: patient is back to baseline - Discharge Instructions Follow Up With: Kanchan Spivey MD [Family Provider] - [place],PCP [Primary Care Provider] - - Diet and Activity Activity: increase activity as tolerated Diet: advance to your usual diet, diabetic diet, low fat, low cholesterol, low salt diet
[2018-04-10] MEDS: Apixaban 5 MG TABLET PO SCH (08:14)
[2018-04-10] MEDS: Aspirin Enteric Coated 81 MG Tablet PO SCH (08:14)
[2018-04-10] MEDS: Cholecalciferol (D-3) 1,000 UNIT TABLET PO SCH (08:14)
[2018-04-10] MEDS: Loratadine 10 MG TABLET PO SCH (08:15)
[2018-04-10] MEDS: Isosorbide MONOnitrate (24 HR) 30 MG TAB.ER.24H PO SCH (08:15)
[2018-04-10] MEDS: Fenofibrate 54 MG TABLET PO SCH (08:15)
[2018-04-10] MEDS: OMEGA ACID ETHYL ESTERS PO SCH (08:48)
[2018-04-10] MEDS ORDERED: amLODIPine 5 MG TABLET PO SCH (09:00)
--- NOTE | 2018-04-11 11:08 | Electrocardiograph Report ---
[address] [place], [place] [address] Test Date: 2018-04-08 Pat Name: Jose Baltimore Department: [id number] Room: 3B14 Gender: M Duck Operator: : 1945 Requested By: Jay Landa Order Number: [id number] Reading MD: Juan Francisco Eaton Measurements Intervals [place] Rate: 81 P: SC: 260 QRS: -3 QRSD: 100 T: QT: 374 QTc: 435 Interpretive Statements Atrial-paced rhythm Possible antersoeptal infarct, age undetermined Nonspecific ST-T changes Electronically Signed On 04-11-2018 11:06:23 EDT by Juan Francisco Eaton
== END 2018-04-10 10:23 | disposition home or self-care (01) ==
LOC: EMEROOARM 15:22 → 3BNU 15:22
PROVIDERS: ADMIT Internal Medicine; ATTEND Internal Medicine

== ENCOUNTER 2018-11-06 13:48 | Inpatient (IN) ==
--- NOTE | 2018-11-06 15:14 | Emergency Department Note ---
Disposition Clinical Impression: Elevated troponin Chest pain Qualifiers: Chest pain type: unspecified Qualified Code(s): R07.9 - Chest pain, unspecified Disposition: Admitted As Inpatient Condition: Fair Referrals: [facility],PCP [Primary Care Provider] - Forms: ED Satisfaction Letter Time of Disposition: 17:42 Chest Pain HPI - General Chief Complaint: ED Chest Pain Stated Complaint: JESSA / Chest Pain post Ablation Time Seen by Provider: 11/06/18 13:53 Source: patient Mode of arrival: ambulatory Limitations: no limitations Vital Signs Reviewed: Yes Nursing Notes Reviewed: Yes - History of Present Illness HPI Narrative: 73-year-old male presents to the emergency department for left-sided chest pain. Patient said he had an ablation done at [facility] on Tuesday said he had was a have any problems until today he started having chest pain and increa sing shortness of breath. He said he has been taken his Eliquis which he does take regularly. He also has a pacemaker and he does not believe that he is pacemaker dependent. He also has defibrillator says it has not gone off recently. Says it recently had the battery change partially one year ago said no other problems since then. The chest pain is worse with exertion. He says if he needs to be admitted he like to go back to [place]. Patient is stable at this time. He has no other complaints at this time Severity scale (1-10): 0 - Related Data Home Medications Medication Instructions Recorded Confirmed Albuterol Sulfate [Albuterol 2 puff IH TID PRN 04/08/18 04/08/18 Inhaler] Apixaban [Eliquis] 5 mg PO BID 04/08/18 04/08/18 Aspirin 81 mg PO DAILY 04/08/18 04/08/18 Cetirizine HCl [All Day Allergy] 5 mg PO DAILY 04/08/18 04/08/18 Cholecalciferol (Vitamin D3) 2,000 mg PO DAILY 04/08/18 04/08/18 [Children's Vitamin D3] Fenofibrate Nanocrystallized 145 mg PO DAILY 04/08/18 04/08/18 [Fenofibrate] Guaifenesin [Cough Syrup] 100 mg PO Q4HR PRN 04/08/18 04/08/18 Insulin Glargine,Hum.rec.anlog 86 unit SQ HS 04/08/18 04/08/18 [Basaglar Kwikpen U-100] Isosorbide MONOnitrate [Isosorbide 30 mg PO DAILY 04/08/18 04/08/18 Mononitrate] Losartan [Cozaar] 75 mg PO DAILY 04/08/18 04/08/18 Metformin HCl [Glucophage] 1,000 mg PO BID 04/08/18 04/08/18 Metoprolol Tartrate [Lopressor] 50 mg PO BID 04/08/18 04/08/18 Mineral Oil, Light/Mineral Oil 15 ml PO HS 04/08/18 04/08/18 [Soothe Xp Eye Drops] Nitroglycerin [Nitrostat] 0.4 mg SL PRN PRN 04/08/18 04/08/18 [place]-3 Acid Ethyl Esters 4 cap PO DAILY 04/08/18 04/08/18 Omeprazole [PriLOSEC] 20 mg PO BID 04/08/18 04/10/18 Tamsulosin HCl [Flomax] 0.4 mg PO BID 04/08/18 04/08/18 glipiZIDE [Glipizide] 20 mg PO BID 04/08/18 04/08/18 guaiFENesin [Guaifenesin] 200 mg PO TID PRN 04/08/18 04/08/18 Previous Rx's Medication Instructions Recorded Atorvastatin [Lipitor] 40 mg PO HS 30 Days #30 tablet 04/10/18 amLODIPine [Norvasc] 5 mg PO DAILY 30 Days #30 tablet 04/10/18 Allergies Allergy/AdvReac Type Severity Reaction Status Date / Time codeine Allergy See Verified 04/08/18 15:29 Comments Procaine [From Novocain] Allergy See Verified 04/08/18 15:29 Comments All systems ED: reviewed and negative except as stated. Review of Systems: As Per HPI Chest Pain PMH - Past Medical History Medical history: Reports: atrial fibrillation, CVA, diabetes, hyperlipidemia, hypertension, myocardial infarction, renal disease, TIA Psychiatric history: Reports: no psych history - Social History Smoking Status: Former smoker Alcohol use: Reports: none Drug use: Reports: none Physical Exam - General Limitations: no limitations General appearance: alert, in no apparent distress - Head Head exam: atraumatic, normocephalic, normal inspection - Eye Eye exam: Present: normal appearance, PERRL, EOMI - ENT ENT exam: normal exam, normal oropharynx, mucous membranes moist - Neck Neck exam: Present: normal inspection, full ROM, trachea midline - Chest Chest inspection: Present: normal inspection, symmetric chest wall rise - Respiratory Respiratory exam: Present: normal lung sounds bilaterally - Cardiovascular Cardiovascular exam: Present: regular rate, normal rhythm, normal heart sounds - Abdominal Exam Abdominal exam: Present: soft, Non-Tender. Absent: tenderness, distention, guarding, rebound, rigidity - Extremities Exam Extremities exam: Present: normal inspection, full ROM. Absent: tenderness, pedal edema - Back Exam Back exam: Present: normal inspection, full ROM. Absent: tenderness, CVA tenderness (R), CVA tenderness (L) - Neurological Exam Neurological exam: Present: alert, oriented X3 - Skin Skin exam: Present: warm, dry, intact, normal color Course Course Narrative: Patient stable at this time. We will get basic labs including CBC BMP troponin well-seated EKG chest x-ray will also interrogate patient's pacemaker. Patient stable at this time. Disposition is pending results - Consultations Consultation #1: Spoke with [employer] they said there were no acute episodes he does smoke presenting on Tuesday which is expected after an ablation otherwise his pacemaker is working good and there is been no findings. Time: 15:25 Consultation #2: Spoke with the on-call drier operator head at [facility] where his ablation was done and he says it is expected for the troponin to be elevated after the abl ation he is not to worry about her but he did recommend observation and admission and echocardiogram to be sure there is no pericardial effusion and continue to trend troponins. I spoke with the patient he agrees with this plan. Time: 17:32 Vital Signs Temperature 97.9 F 11/06/18 14:02 Pulse Rate 87 11/06/18 14:02 Respiratory Rate 22 11/06/18 14:02 Blood Pressure 141/80 11/06/18 14:02 O2 Sat by Pulse Oximetry 92 11/06/18 14:02 Temperature 97.9 F 11/06/18 14:21 Pulse Rate 76 11/06/18 17:57 Respiratory Rate 19 11/06/18 17:57 Blood Pressure 134/72 11/06/18 17:57 O2 Sat by Pulse Oximetry 95 11/06/18 17:57 Oxygen Delivery Oxygen Delivery Room Air Chest Pain - MDM Narrative Medical decision making narrative: 73-year-old male presented here with chest pain after an ablation done on Tuesday. I spoke with the drier operator head on-call at that hospital they said that is expected to have an elevated troponin. All other labs were normal chest x- ray also was normal. We also did interrogation of his pacemaker which had no acute events after the ablation on Tuesday. We will admit the patient for further evaluation as well as to trend troponins. Patient stable at this time. There is no EKG changes. Spoke with the hospitalist Dr. Martin who agreed to admit the patient to their service. Patient is admitted in stable condition. Patient does have the mild bronchitis mild pleuritic congestion I do not think this is pneumonia at this time and I do not want to give him anything that could change his heart arrhythmias and cause 1 so we will forego doing and back this time and continue to monitor him and if the fever spikes hospitals consent consider starting antibiotics. Patient stable at time of admission. Chest X-Ray 11/06/18 14:27 IMPRESSION: Increased lung markings at the bilateral infrahilar regions, may be related to mild bronchitis or mild pulmonary vascular congestion. Mild discoid atelectasis at the bilateral lung bases. D/ / Jarrod Agudelo MD / Jarrod Agudelo MD Interpreting Provider: Jarrod Agudelo MD - Medical Records Medical records reviewed: Yes I reviewed the patient's medical records. - Lab Data Lab results reviewed: Yes I reviewed the patient's lab results. Result diagrams: 11/06/18 14:44 Lab Results 11/06/18 11/06/18 Range/Units 14:44 14:44 Sodium 137 (136-145) mEq/L Potassium 4.0 (3.5-5.1) mEq/L Chloride 104 (98-107) mEq/L Carbon Dioxide 24 (23-29) mEq/L BUN 23 (8-23) mg/dL Creatinine 1.39 H (0.70-1.30) mg/dL Est GFR ( Amer) > 60 (> 60) Est GFR (Non-Af Amer) 50 L (> 60) BUN/Creatinine Ratio 17 (6-26) Glucose 154 H (70-105) mg/dL Calculated Osmolality 291 (280-300) Calcium 9.4 (8.6-10.3) mg/dL Magnesium 1.6 (1.6-2.6) mg/dL Troponin I 0.40 H* (< 0.04) ng/mL B-Natriuretic Peptide 90 (Less than 100) pg/mL Lipase 24 (11-82) Units/L - Radiology Data Radiology results reviewed: Yes I reviewed the patient's radiology results. - EKG Data EKG attestation: Yes I reviewed and interpreted this EKG. EKG results narrative: EKG done at 1358 review by myself and the attending shows atrially paced rhythm at 85, GA interval 227, QRS 16, QTC 473. Is no acute ST changes no acute T-wave changes nor signs of ischemia. No signs of hypertrophy, heart strain, heart block. No WPW/B[place]ada/HOCM. No acute changes based on old EKG done 04/08/18 Heart Score - Score History: Moderately Suspicious EKG: Non Specific repolarisation Disturbance Age: Greater than 65 Risk Factors: Equal/Greater than 3 risk factor or history of atherosclerotic disease Troponin: Less than normal limit HEART Score Total: 6 Attestation Statement - Attestation Attestation: I, Aurelio Whiteside DO, examined this patient [id number] and my medical decision-making was reviewed with Dr. Anjum Velasquez, Resident Physician. I agree with the documented findings, disposition and treatment plan as described except to the extent set forth below. I personally supervised and was present for the schultz/critical portions of the procedures completed by the resident documented below. Please see my progress notes for details.
[2018-11-06 15:15] LABS: BUN/Creatinine Ratio 17 (6-26); Blood Urea Nitrogen 23 mg/dL (8-23); Calcium 9.4 mg/dL (8.6-10.3); Carbon Dioxide 24 mEq/L (23-29); Chloride 104 mEq/L (98-107); Glucose 154 mg/dL (70-105); Lipase 24 Units/L (11-82); Magnesium 1.6 mg/dL (1.6-2.6); Osmolality,Calculated 291 (280-300); Sodium 137 mEq/L (136-145); eGFR For Non-African Americans 50 (> 60)
--- NOTE | 2018-11-06 15:57 | Emergency Department Note ---
Disposition Clinical Impression: Elevated troponin Chest pain Qualifiers: Chest pain type: unspecified Qualified Code(s): R07.9 - Chest pain, unspecified Disposition: Admitted As Inpatient Condition: Fair [facility]Primary Care Provider[facility] - Forms: ED Satisfaction Letter Time of Disposition: 19:24 General Adult HPI - General Chief complaint: ED Chest Pain Stated complaint: JESSA / Chest Pain post Ablation Time Seen by Provider: 11/06/18 13:53 Source: patient Mode of arrival: ambulatory Limitations: no limitations - History of Present Illness Pain Scale: 0 - Related Data Home Medications Medication Instructions Recorded Confirmed Albuterol Sulfate [Albuterol 2 puff IH TID PRN 04/08/18 04/08/18 Inhaler] Apixaban [Eliquis] 5 mg PO BID 04/08/18 04/08/18 Aspirin 81 mg PO DAILY 04/08/18 04/08/18 Cetirizine HCl [All Day Allergy] 5 mg PO DAILY 04/08/18 04/08/18 Cholecalciferol (Vitamin D3) 2,000 mg PO DAILY 04/08/18 04/08/18 [Children's Vitamin D3] Fenofibrate Nanocrystallized 145 mg PO DAILY 04/08/18 04/08/18 [Fenofibrate] Guaifenesin [Cough Syrup] 100 mg PO Q4HR PRN 04/08/18 04/08/18 Insulin Glargine,Hum.rec.anlog 86 unit SQ HS 04/08/18 04/08/18 [Basaglar Kwikpen U-100] Isosorbide MONOnitrate [Isosorbide 30 mg PO DAILY 04/08/18 04/08/18 Mononitrate] Losartan [Cozaar] 75 mg PO DAILY 04/08/18 04/08/18 Metformin HCl [Glucophage] 1,000 mg PO BID 04/08/18 04/08/18 Metoprolol Tartrate [Lopressor] 50 mg PO BID 04/08/18 04/08/18 Mineral Oil, Light/Mineral Oil 15 ml PO HS 04/08/18 04/08/18 [Soothe Xp Eye Drops] Nitroglycerin [Nitrostat] 0.4 mg SL PRN PRN 04/08/18 04/08/18 [place]-3 Acid Ethyl Esters 4 cap PO DAILY 04/08/18 04/08/18 Omeprazole [PriLOSEC] 20 mg PO BID 04/08/18 04/10/18 Tamsulosin HCl [Flomax] 0.4 mg PO BID 04/08/18 04/08/18 glipiZIDE [Glipizide] 20 mg PO BID 04/08/18 04/08/18 guaiFENesin [Guaifenesin] 200 mg PO TID PRN 04/08/18 04/08/18 Previous Rx's Medication Instructions Recorded Atorvastatin [Lipitor] 40 mg PO HS 30 Days #30 tablet 04/10/18 amLODIPine [Norvasc] 5 mg PO DAILY 30 Days #30 tablet 04/10/18 Allergies Allergy/AdvReac Type Severity Reaction Status Date / Time codeine Allergy See Verified 04/08/18 15:29 Comments Procaine [From Novocain] Allergy See Verified 04/08/18 15:29 Comments Past Medical History - Past Medical History Medical history: Reports: atrial fibrillation, CVA, diabetes, hyperlipidemia, hypertension, myocardial infarction, renal disease, TIA Psychiatric history: Reports: no psych history - Social History Smoking Status: Former smoker Alcohol use: Reports: none Drug use: Reports: none Physical Exam - General Limitations: no limitations General appearance: alert, in no apparent distress Course Vital Signs Temperature 97.9 F 11/06/18 14:02 Pulse Rate 87 11/06/18 14:02 Respiratory Rate 22 11/06/18 14:02 Blood Pressure 141/80 11/06/18 14:02 O2 Sat by Pulse Oximetry 92 11/06/18 14:02 Temperature 97.9 F 11/06/18 14:21 Pulse Rate 76 11/06/18 17:57 Respiratory Rate 19 11/06/18 17:57 Blood Pressure 134/72 11/06/18 17:57 O2 Sat by Pulse Oximetry 95 11/06/18 17:57 Oxygen Delivery Oxygen Delivery Room Air Medical Decision Making - Lab Data Result diagrams: 11/06/18 14:44 11/06/18 14:44 Lab Results 11/06/18 11/06/18 11/06/18 Range/Units 14:44 14:44 14:44 WBC 9.6 (4.3-11.1) K/mcL RBC 3.70 L (4.19-5.50) M/mcL Hgb 11.4 L (12.9-16.9) g/dL Hct 34.1 L (37.5-50.1) % MCV 92.2 (83.0-100.0) fL MCH 30.8 (28.0-33.3) pg MCHC 33.4 (31.6-35.5) g/dL RDW 13.3 (11.5-14.5) % Plt Count 193 (140-400) K/mcL MPV 10.6 (9.4-12.4) fL Immature Gran % 0.2 (0-4) % Seg Neutrophils % 60.3 % Lymphocytes % 22.7 % Monocytes % 13.8 % Eosinophils % 2.7 % Basophils % 0.3 % Neutrophils # 5.8 (1.6-8.9) K/mcL Lymphocytes # 2.2 (0.6-4.6) K/mcL Monocytes # 1.3 (0.0-1.3) K/mcL Eosinophils # 0.3 (0.0-0.6) K/mcL Basophils # 0.0 (0.0-0.2) K/mcL Sodium 137 (136-145) mEq/L Potassium 4.0 (3.5-5.1) mEq/L Chloride 104 (98-107) mEq/L Carbon Dioxide 24 (23-29) mEq/L BUN 23 (8-23) mg/dL Creatinine 1.39 H (0.70-1.30) mg/dL Est GFR ( Amer) > 60 (> 60) Est GFR (Non-Af Amer) 50 L (> 60) BUN/Creatinine Ratio 17 (6-26) Glucose 154 H (70-105) mg/dL Calculated Osmolality 291 (280-300) Calcium 9.4 (8.6-10.3) mg/dL Magnesium 1.6 (1.6-2.6) mg/dL Troponin I 0.40 H* (< 0.04) ng/mL B-Natriuretic Peptide 90 (Less than 100) pg/mL Lipase 24 (11-82) Units/L Attestation Statement - Attestation Attestation: I, Aurelio Whiteside DO, examined this patient [id number] and my medical decision-making was reviewed with Dr. Anjum Velasquez, Resident Physician. I agree with the documented findings, disposition and treatment plan as described except to the extent set forth below. I personally supervised and was present for the schultz/critical portions of the procedures completed by the resident documented below. Please see my progress notes for details. He is physical is admitted 73-year-old male presents emergency room for evaluation of chest pain and shortness of breath. Patient has had these symptoms since leaving [facility]. He was seen and evaluated there for atrial fibrillation and had cardiac ablation completed that time. Patient had no symptoms when he left the hospital but over the last 24 hours he started to have progressively worsening intermittent pain discomfort and shortness of breath. He denies any fevers or chills. He has not had any nausea vomiting or diarrhea. Denies any headache or vision change. On physical exam patient is resting comfortably in the bed. While he sitting still he has no pain or discomfort. There is no redness warmth or irritation noted to the skin of the groin. His lungs are clear his heart is regular. Pacemaker site appears to be healed appropriately. Abdomen is slightly distended but soft with no guarding no rigidity and no peritoneal symptoms. Patient denies any history of ascites or liver related issues. Patient will have cardiac evaluation completed including EKG chest x-ray CBC chemistry troponin. Concern is noted for the post ablation timeframe that the patient is presenting as his this point. We will evaluate the bedside point of care ultrasound rule out any signs of pericardial effusion address any other underlying etiology including heart failure versus myocardial infarction. Disposition been in full workup and treatment course. See detailed documentation the physical exam, medical intervention, medical decision-making and disposition the resident physician's note. No critical care applied the patient's treatment course at this time. 1600 Patient has an elevated troponin of 0.4. He is been asymptomatic while here. Bedside point of care ultrasound shows no visible signs of free fluid in the pericardium at this time. 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 will be completed. Dr. Whiting has been paged at this time. 1915 Patient's hemoglobin is stable. Otherwise the patient is clinically stable and feeling much better. He will be admitted for trending of the troponins and echocardiogram. The hospitalist Dr. Preston reviewed the case. No other concerns or issues noted this time. Patient will be admitted to the hospital for cont inuation of care management. Patient is otherwise clinically stable. We will monitor here in the emergency department until the admission process is completed. Bronchitis was noted on chest x-ray but antibiotic will be held at this point considering he is asymptomatic outside of a cough. If he spikes a fever has productive discolored sputum antibiotics will be started by the hospitalist group.
[2018-11-06 19:17] LABS: Basophils % 0.3 %; Eosinophils # 0.3 K/mcL (0.0-0.6); Eosinophils % 2.7 %; Hematocrit 34.1 % (37.5-50.1); Hemoglobin 11.4 g/dL (12.9-16.9); Immature Granulocytes % 0.2 % (0-4); Lymphocytes # 2.2 K/mcL (0.6-4.6); Lymphocytes % 22.7 %; Mean Corpuscular HGB Conc 33.4 g/dL (31.6-35.5); Mean Corpuscular Hemoglobin 30.8 pg (28.0-33.3); Mean Corpuscular Volume 92.2 fL (83.0-100.0); Mean Platelet Volume 10.6 fL (9.4-12.4); Monocytes # 1.3 K/mcL (0.0-1.3); Monocytes % 13.8 %; Neutrophils # 5.8 K/mcL (1.6-8.9); Platelet Count 193 K/mcL (140-400); Red Cell Distribution Width 13.3 % (11.5-14.5); Segmented Neutrophils % 60.3 %
[2018-11-06] MEDS ORDERED: *HR* Dextrose 50 % in Water (Syg) 50 ML SYRINGE IVP PRN (21:34)
[2018-11-06] MEDS ORDERED: Dextrose Gel 15 GM/37.5 ML TUBE PO PRN ×2 (21:34)
[2018-11-06] MEDS ORDERED: D5% in Water 1,000 ML IVC PRN (21:34)
[2018-11-06] MEDS ORDERED: Naloxone 0.4 MG/ML INJ IVP PRN (21:34)
[2018-11-06] MEDS ORDERED: *HR* HYDROcodone/Acet 5/325 mg TABLET PO PRN (21:36)
[2018-11-06] MEDS ORDERED: Ondansetron 4 MG/2 ML VIAL IVP PRN (21:36)
[2018-11-06] MEDS ORDERED: Furosemide 40 MG/4 ML VIAL IVP ONE (21:36)
[2018-11-06] MEDS ORDERED: Acetaminophen 325 MG TABLET PO PRN (21:36)
[2018-11-06] MEDS ORDERED: Nitroglycerin 0.4 MG TAB.SUBL SL PRN (21:39)
--- NOTE | 2018-11-06 22:12 | Internal Med History&Physical ---
Date of Encounter: 11/06/18 Time of Encounter: 19:45 Internal Medicine - H&P: HPI Chief complaint: CP;SOB Admitted From: Emergency Dept Plans for Post Hospital Care: Home History of present illness: Mr. Gaxiola is a 73 year old male who presents with complaints of chest pain, shortness of breath, and worsening symptoms with change in positions. Symptoms started 2 days ago and have progressively worsened to the point where he was very uncomfortable today. He therefore came to the ER. Workup in ER revealed patient to have a troponin of 0.40. EKG revealed an atrial paced rhythm. Of note, patient had radiofrequency catheter ablation on 11/03/2018, at [facility] in [place]. 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 He expected this postprocedure. However, he did recommend observing him and ordering stat echo to evaluate for possible pericardial effusion. He was therefore admitted to hospitalist service. Upon my assessment of the patient in the ER, he is resting in bed comfortably. He is sitting up at a 60 degree angle. However, if I lie him flat, he becomes dyspneic, has worsening chest pain, and is growing a little anxious. These are all new symptoms since his procedure. As I sit him up, his symptoms improve. He denies any fevers, productive cough, wheezing, vomiting, or diarrhea. His chest pain is more mid-sternal and sharp in nature. He has never had PE before. He is on Eliquis for atrial fibrillation and has not missed any doses. Based upon history provided to me by patient, his , and ER staff, I ordered a STAT echo and requested STAT read. Past Med Surg Social Fam HX - Past Medical History Attestation: Yes The following information was validated with the patient. Source: patient, old records reviewed, obtained from family Medical history: atrial fibrillation, CVA, diabetes, hyperlipidemia, hypertension, myocardial infarction, renal disease, TIA Psychiatric history: no psych history - Past Surgical History Surgical History: pacemaker/AICD Additional surgical history: Catheter ablation - Social History Smoking Status: Former smoker Alcohol use: none Drug use: none Current living situation: Home, With Family Recent Out of Country Travel Within the Last 8 Weeks: No - Family History Mother Living Status: Hx Family Cancer: Yes (breast) Hx Family Endocrine Disorder: Yes (DM) Father Living Status: Internal Medicine - H&P: Meds Albuterol Sulfate [Albuterol Inhaler] 2 puff IH TID PRN 04/08/18 [History] Apixaban [Eliquis] 5 mg PO BID 04/08/18 [History] Aspirin 81 mg PO DAILY 04/08/18 [History] Cetirizine HCl [All Day Allergy] 5 mg PO DAILY 04/08/18 [History] Cholecalciferol (Vitamin D3) [Children's Vitamin D3] 2,000 mg PO DAILY 04/08/18 [History] Fenofibrate Nanocrystallized [Fenofibrate] 145 mg PO DAILY 04/08/18 [History] Guaifenesin [Cough Syrup] 100 mg PO Q4HR PRN 04/08/18 [History] Insulin Glargine,Hum.rec.anlog [Basaglar Kwikpen U-100] 86 unit SQ HS 04/08/18 [History] Isosorbide MONOnitrate [Isosorbide Mononitrate] 30 mg PO DAILY 04/08/18 [History] Losartan [Cozaar] 75 mg PO DAILY 04/08/18 [History] Metformin HCl [Glucophage] 1,000 mg PO BID 04/08/18 [History] Metoprolol Tartrate [Lopressor] 50 mg PO BID 04/08/18 [History] Mineral Oil, Light/Mineral Oil [Soothe Xp Eye Drops] 15 ml PO HS 04/08/18 [History] Nitroglycerin [Nitrostat] 0.4 mg SL PRN PRN 04/08/18 [History] [place]-3 Acid Ethyl Esters 4 cap PO DAILY 04/08/18 [History] Omeprazole [PriLOSEC] 20 mg PO BID 04/08/18 [History] Tamsulosin HCl [Flomax] 0.4 mg PO BID 04/08/18 [History] glipiZIDE [Glipizide] 20 mg PO BID 04/08/18 [History] guaiFENesin [Guaifenesin] 200 mg PO TID PRN 04/08/18 [History] Atorvastatin [Lipitor] 40 mg PO HS 30 Days #30 tablet 04/10/18 [Rx] amLODIPine [Norvasc] 5 mg PO DAILY 30 Days #30 tablet 04/10/18 [Rx] Allergy/AdvReac Type Severity Reaction Status Date / Time codeine Allergy See Verified 04/08/18 15:29 Comments Procaine [From Novocain] Allergy See Verified 04/08/18 15:29 Comments - Constitutional Constitutional: no chills, no fever(s) - EENT Eyes: no blurry vision, no change in vision Ears: no ear pain, no tinnitus Nose, mouth and throat: no nasal congestion, no sinus pressure, no sore throat - Cardiovascular Cardiovascular ROS IM: chest pain, dyspnea, dyspnea on exertion, edema, orthopnea, paroxysmal nocturnal dyspnea, no lightheadedness - Respiratory Respiratory: dyspnea, no cough, no hemoptysis, no chest congestion, no excessive phlegm production, no change in phlegm color, no pain with cough - Gastrointestinal Gastrointestinal: no abdominal pain, no diarrhea, no hematemesis, no hematochezia, no melena, no nausea, no vomiting - Genitourinary Genitourinary ROS male: no dysuria, no flank pain, no hematuria - Musculoskeletal Musculoskeletal ROS IM: no arthralgias, no back pain - Integumentary Integumentary IM: no rash, no jaundice - Neurological Neurological ROS: no dizziness, no focal weakness, no frequent falls, no headache(s) - Psychiatric Psychiatric: no anxiety, no depression - Endocrine Endocrine IM: no polydipsia, no polyuria - Allergic/Immunologic Allergic/Immunologic: no GI upset with certain foods - Constitutional Vitals: Temp Pulse Resp BP Pulse Ox 97.9 F 75 23 134/75 91 11/06/18 14:21 11/06/18 19:51 11/06/18 19:51 11/06/18 19:51 11/06/18 19:51 General appearance: Present: cooperative, A&O X 3, pleasant, answers questions appropriately Exam: CP free currently and mild SOB sitting at 60 degree angle; marked SOB lying flat - Head Head exam: Present: atraumatic, normal inspection - Eye Eye exam: Present: EOMI, PERRL. Absent: scleral icterus Pupils: Present: normal accommodation - ENT ENT exam: Present: mucous membranes dry, normal exam, normal oropharynx - Neck Neck exam general surgery: Present: full ROM, supple, trachea midline. Absent: lymphadenopathy, tenderness, nuchal rigidity, thyromegaly - Respiratory Respiratory exam: Present: rales (faint crackles both bases), respiratory distress (mild), tachypnea. Absent: accessory muscle use, chest wall tenderness, CTAB, rhonchi, wheezes - Cardiovascular Cardiovascular exam: Present: distant heart sounds, JVD (subtle), +S1, +S2. Absent: diastolic murmur, tachycardia - GI/Abdominal GI/Abdominal exam: Present: normal bowel sounds, soft. Absent: guarding, hepatomegaly, mass, rebound, splenomegaly, tenderness - Extremities Exam Extremities exam: Present: full ROM, normal capillary refill, pedal edema (2+), warm, radial pulses palpable and symmetrical. Absent: calf tenderness, joint swelling, tenderness - Back Exam Back exam: Present: normal inspection. Absent: CVA tenderness (L), CVA tenderness (R) - Neurological Exam Neurological exam: Present: alert, CN II-XII intact, oriented X3, reflexes normal, no focal deficits - Psychiatric Psychiatric exam: Present: normal affect, normal mood - Skin Skin exam: Present: dry, intact, warm Internal Med - H&P Results - Labs CBC & Chem 7: 11/06/18 14:44 11/06/18 14:44 Labs: Short CBC 11/06/18 Range/Units 14:44 WBC 9.6 (4.3-11.1) K/mcL Hgb 11.4 L (12.9-16.9) g/dL Hct 34.1 L (37.5-50.1) % Plt Count 193 (140-400) K/mcL Neutrophils # 5.8 (1.6-8.9) K/mcL BMP 11/06/18 14:44 Sodium 137 Potassium 4.0 Chloride 104 Carbon Dioxide 24 BUN 23 Creatinine 1.39 H Glucose 154 H Calcium 9.4 Cardiac Enzymes 11/06/18 Range/Units 14:44 Troponin I 0.40 H* (< 0.04) ng/mL - EKG Data -: EKG Interpreted by Myself - EKG Data Prior EKG available for review: no EKG comments: 11/07/18 02:31 atrial paced rhythm - Impressions ITS Impressions Chest X-Ray 11/06/18 14:27 IMPRESSION: Increased lung markings at the bilateral infrahilar regions, may be related to mild bronchitis or mild pulmonary vascular congestion. Mild discoid atelectasis at the bilateral lung bases. D/ / Jarrod Agudelo MD / Jarrod Agudelo MD Interpreting Provider: Jarrod Agudelo MD Echocardiogram 11/06/18 20:22 Impressions: LVEF 55%. Normal LV chamber size and overall function. Mild asymmetric hypertrophy of the basal septum. Mild segmental left ventricular systolic dysfunction. Atypical septal motion consistent with paced rhythm. Grossly normal right ventricular structure and function. Mild mitral regurgitation. Mild pulmonary hypertension. The pericardium appears normal. No effusion. A device lead was visualized in the right atrium and right ventricle. Left Ventricular Wall Motion: Rest Echo Findings The basal inferior wall was hypokinetic. All other wall segments showed normal motion. Findings: Study Quality * Technically sub-optimal due to body habitus. ECG Findings * Paced rhythm. Left Ventricle * LVEF 55%. * Normal LV chamber size and overall function. * Mild segmental left ventricular systolic dysfunction. * Mild asymmetric hypertrophy of the basal septum. * Atypical septal motion consistent with paced rhythm. Right Ventricle * Grossly normal right ventricular structure and function. Left Atrium * Mildly dilated left atrium. Right Atrium * Normal right atrial size. Aortic Valve * Aortic valve not well visualized. * Grossly, mildly calcified aortic valve leaflets. * No aortic regurgitation. * No aortic stenosis. Mitral Valve * Normal mitral valve structure and function. * Mild mitral regurgitation. * No mitral stenosis. Tricuspid Valve * Normal tricuspid valve structure and function. * Trace tricuspid regurgitation. * Mild pulmonary hypertension. Pulmonic Valve * Pulmonic valve not well visualized. * No pulmonic regurgitation. Aorta * Normally sized aortic root. Pericardium * The pericardium appears normal. IVC * The IVC is not well evaluated. Pulmonary Artery * Pulmonary artery not well visualized. Device lead * A device lead was visualized in the right atrium and right ventricle. - Diagnostic Studies Chest x-ray Status: image reviewed by me (pulmonary vascualr congestion) - Assessment and Plan (1) Chest pain Current Visit: Yes Status: Acute Assessment and plan: 1. Will monitor on telemetry, trend troponins, and EKG's. 2. 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 3. Consult cardiology. 4. Currently chest pain free. Qualifiers: Chest pain type: chest pain on breathing Qualified Code(s): R07.1 - Chest pain on breathing; R07.81 - Pleurodynia (2) CHF (congestive heart failure) Current Visit: Yes Status: Suspected Assessment and plan: 1. Patient appears fluid overloaded on exam. 2. Will give one dose of Lasix IV if ECHO shows no evidence of tamponade. 3. Monitor I/O. Qualifiers: Heart failure type: unspecified Heart failure chronicity: acute Qualified Code(s): I50.9 - Heart failure, unspecified (3) Elevated troponin Current Visit: Yes Status: Acute Assessment and plan: 1. Likely post-procedure from Catheter ablation on 11/03/18. 2. Will trend troponins and review ECHO. 3. Cardiology consultation. (4) Diabetes mellitus Current Visit: Yes Status: Chronic Assessment and plan: 1. Will hold oral meds and place on SSI. 2. Need to confirm home meds and dosing. 3. Resume basal insulin once dosing confirmed. 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 Resume home Eliquis once dosing and meds verified and once pericardial effusion/tamponade ruled out.
[2018-11-07 07:43] LABS: Basophils % 0.4 %; Eosinophils # 0.4 K/mcL (0.0-0.6); Eosinophils % 5.6 %; Hematocrit 34.3 % (37.5-50.1); Hemoglobin 11.4 g/dL (12.9-16.9); Immature Granulocytes % 0.1 % (0-4); Lymphocytes % 26.5 %; Mean Corpuscular HGB Conc 33.2 g/dL (31.6-35.5); Mean Corpuscular Hemoglobin 30.7 pg (28.0-33.3); Mean Corpuscular Volume 92.5 fL (83.0-100.0); Mean Platelet Volume 10.1 fL (9.4-12.4); Monocytes # 0.9 K/mcL (0.0-1.3); Monocytes % 12.2 %; Neutrophils # 4.1 K/mcL (1.6-8.9); Platelet Count 188 K/mcL (140-400); Red Blood Count 3.71 M/mcL (4.19-5.50); Red Cell Distribution Width 13.2 % (11.5-14.5); Segmented Neutrophils % 55.2 %
[2018-11-07 07:56] LABS: INR 1.3; Prothrombin Time 14.2 Seconds (9.4-12.1)
[2018-11-07 07:57] LABS: Activated Partial Thrombo Time 32.2 Seconds (26.0-36.0)
[2018-11-07] MEDS: Insulin LISPRO 300 UNITS/3 ML VIAL SQ SCH ×3 (08:14→17:31)
[2018-11-07] MEDS: Aspirin 81 MG TAB.CHEW PO SCH (08:24)
[2018-11-07 08:36] LABS: Albumin 3.7 g/dL (3.5-5.7); Albumin/Globulin Ratio 1.3 (1.1-2.2); Bilirubin,Total 0.7 mg/dL (0.3-1.0); Calcium 8.9 mg/dL (8.6-10.3); Globulin 2.9 g/dL (2.4-3.5); Magnesium 1.7 mg/dL (1.6-2.6); Potassium 3.9 mEq/L (3.5-5.1); Total Protein 6.6 g/dL (6.4-8.9)
--- NOTE | 2018-11-07 14:51 | Event Note ---
Date of Encounter: 11/07/18 Time of Encounter: 14:47 I have seen and evaluated the patient at bedside. patient reports improvement of the shortness of breath. as per his his shortness of breath is worse when he walks. he denies chest pain, nausea or abdominal pain. Physical exam: Vitals: Reviewed General: Alert and oriented x4. In no distress Skin: Normal color, no rash, no lesions. HEENT: EOM, pupils equal, round and reactive. Cardiovascular: Irregularly irregular, normal S1 & S2, no rubs, murmurs or gallops. Lungs: CTA b/l, no wheezes or crackles. Abdomen: Soft, non-tender, no rigidity. Extremities: No deformity, no edema or tenderness, no joint swelling or clubbing. Neurological:Normal cognition and motor skills. Rest of the physical exam is non contributory Assessment 1. A.Fib s/p ablation 2. Diabetes 3. Shortness of breath 4. HLD 5. HTN 6. CKD 7. VTE prophylaxis Plan cardiology consulted, patient reporting shortness of breath s/p recent cardioversion will resume home medications will continue to follow up
--- NOTE | 2018-11-07 15:19 | Electrocardiograph Report ---
[address] [address] Test Date: 2018-11-06 Pat Name: Jose [place] Department: [id number] Room: 2A Gender: M Director Hematology: : 1945 Requested By: Anjum Velasquez Order Number: [id number] Reading MD: Joni Thornton Measurements Intervals [place] Rate: 85 P: CT: 227 QRS: 25 QRSD: 106 T: -43 QT: 397 QTc: 473 Interpretive Statements Atrial-paced rhythm Low voltage, extremity leads Electronically Signed On 11-07-2018 15:17:43 EDT by Joni Thornton
[2018-11-07] MEDS ORDERED: Insulin LISPRO 300 UNITS/3 ML VIAL SQ SCH (21:00)
[2018-11-07] MEDS: Apixaban 5 MG TABLET PO SCH (21:21)
[2018-11-08] MEDS ORDERED: amLODIPine 5 MG TABLET PO SCH (09:00)
[2018-11-08] MEDS ORDERED: Isosorbide MONOnitrate (24 HR) 30 MG TAB.ER.24H PO SCH (09:00)
[2018-11-08] MEDS: Apixaban 5 MG TABLET PO SCH (09:11)
[2018-11-08] MEDS: Aspirin 81 MG TAB.CHEW PO SCH (09:11)
[2018-11-08] MEDS: Insulin LISPRO 300 UNITS/3 ML VIAL SQ SCH ×2 (09:12→12:55)
--- NOTE | 2018-11-08 10:40 | Discharge Summary ---
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 Diabetes mellitus complication status: with other specified complication Qualified Code(s): E11.69 - Type 2 diabetes mellitus with other specified complication; Z79.4 - snf (current) use of insulin (2) DVT prophylaxis Priority: Secondary Status: Acute (3) Chest pain Priority: Primary Status: Resolved Qualifiers: Chest pain type: chest pain on breathing Qualified Code(s): R07.1 - Chest pain on breathing; R07.81 - Pleurodynia (4) Elevated troponin Priority: Secondary Status: Acute (5) CHF (congestive heart failure) Priority: Secondary Status: Chronic Qualifiers: Heart failure type: diastolic Heart failure chronicity: chronic Qualified Code(s): I50.32 - Chronic diastolic (congestive) heart failure Hospital course: Mr. Gaxiola is a 73 year old male PMH atrial fibrillation, CVA, diabetes, hyperlipidemia, hypertension, myocardial infarction, renal disease, TIA. who presents with complaints of chest pain, shortness of breath, and worsening symptoms with change in positions. Symptoms started 2 days ago and have progressively worsened to the point where he was very uncomfortable today. He therefore came to the ER. Patient was admitted to the hospital due to chest pain, shortness of breath and elevated trops. ER staff contacted his card iologist who was not concerned about the troponin elevation. He expected this postprocedure. However, he did recommend observing him and ordering stat echo to evaluate for possible pericardial effusion. TTE: unremarkable. Cardiology consulted. Recommended? Patient hemodynamically stable to be discharged home, recommended to follow up his cardiology team at [facility]. - Time Spent with Patient Total time spent providing and/or coordinating discharge services: Time spent: Greater than 30 minutes (35) - Discharge Medications Prescriptions: Continued Guaifenesin [Cough Syrup] 200 mg PO Q4HR PRN PRN Reason: Cough Fenofibrate Nanocrystallized [Fenofibrate] 145 mg PO DAILY Cholecalciferol (Vitamin D3) [Children's Vitamin D3] 2,000 mg PO DAILY Cetirizine HCl [All Day Allergy] 5 mg PO DAILY Apixaban [Eliquis] 5 mg PO BID Albuterol Sulfate [Albuterol Inhaler] 2 puff IH TID PRN PRN Reason: Cough Tamsulosin HCl [Flomax] 0.4 mg PO BID Omeprazole [PriLOSEC] 20 mg PO DAILY [place]-3 Acid Ethyl Esters [Triklo] 4 gm PO DAILY #0 Nitroglycerin [Nitrostat] 0.4 mg SL PRN PRN PRN Reason: chest pain Metformin HCl [Glucophage] 1,000 mg PO BID Losartan [Cozaar] 75 mg PO DAILY Insulin Glargine,Hum.rec.anlog [Basaglar Kwikpen U-100] 86 unit SQ HS guaiFENesin [Guaifenesin] 200 mg PO TID PRN PRN Reason: chest congestion glipiZIDE [Glipizide] 10 mg PO BID Metoprolol Tartrate [Lopressor] 50 mg PO BID Vit A/Vit C/Vit E/Zinc/Copper [Preservision Areds Tablet] 1 tab PO BID Mineral Oil 15 ml PO HS PRN PRN Reason: Constipation Aspirin 325 mg PO DAILY Atorvastatin Calcium [Lipitor] 40 mg PO HS Amlodipine Besylate 10 mg PO DAILY Isosorbide MONOnitrate [Isosorbide Mononitrate ER] 120 mg PO DAILY Home Medications: Albuterol Sulfate [Albuterol Inhaler] 2 puff IH TID PRN 04/08/18 [History] Apixaban [Eliquis] 5 mg PO BID 04/08/18 [History] Cetirizine HCl [All Day Allergy] 5 mg PO DAILY 04/08/18 [History] Cholecalciferol (Vitamin D3) [Children's Vitamin D3] 2,000 mg PO DAILY 04/08/18 [History] Fenofibrate Nanocrystallized [Fenofibrate] 145 mg PO DAILY 04/08/18 [History] Guaifenesin [Cough Syrup] 200 mg PO Q4HR PRN 04/08/18 [History] Insulin Glargine,Hum.rec.anlog [Basaglar Kwikpen U-100] 86 unit SQ HS 04/08/18 [History] Losartan [Cozaar] 75 mg PO DAILY 04/08/18 [History] Metformin HCl [Glucophage] 1,000 mg PO BID 04/08/18 [History] Metoprolol Tartrate [Lopressor] 50 mg PO BID 04/08/18 [History] Nitroglycerin [Nitrostat] 0.4 mg SL PRN PRN 04/08/18 [History] [place]-3 Acid Ethyl Esters [Triklo] 4 gm PO DAILY #0 04/08/18 [History] Omeprazole [PriLOSEC] 20 mg PO DAILY 04/08/18 [History] Tamsulosin HCl [Flomax] 0.4 mg PO BID 04/08/18 [History] glipiZIDE [Glipizide] 10 mg PO BID 04/08/18 [History] guaiFENesin [Guaifenesin] 200 mg PO TID PRN 04/08/18 [History] Amlodipine Besylate 10 mg PO DAILY 11/07/18 [History] Aspirin 325 mg PO DAILY 11/07/18 [History] Atorvastatin Calcium [Lipitor] 40 mg PO HS 11/07/18 [History] Isosorbide MONOnitrate [Isosorbide Mononitrate ER] 120 mg PO DAILY 11/07/18 [History] Mineral Oil 15 ml PO HS PRN 11/07/18 [History] Vit A/Vit C/Vit E/Zinc/Copper [Preservision Areds Tablet] 1 tab PO BID 11/07/18 [History] Allergies/Adverse Reactions: Allergy/AdvReac Type Severity Reaction Status Date / Time codeine Allergy See Verified 04/08/18 15:29 Comments Procaine [From Novocain] Allergy See Verified 04/08/18 15:29 Comments Date of admission: 11/08/18 09:17 [facility]: [facility] Consults: 11/07/18 09:20 Consult to Nurse Navigator [CONS] Routine Comment: poss chf, 11/07/18 14:45 Consult to Cardiology [CONS] Routine Comment: Consulting Provider: Cardiology Ana Reason for Consult: SOB s/p recent ablation for A.fib Call Completed: No - Constitutional Vitals: Temp Pulse Resp BP Pulse Ox 98.0 F 61 17 137/78 93 11/08/18 07:36 11/08/18 07:36 11/08/18 07:36 11/08/18 07:36 11/08/18 07:36 General appearance: Present: cooperative, A&O X 3, pleasant, answers questions appropriately Exam: Vitals: Reviewed General: Alert and oriented x4. In no distress Cardiovascular: Irregularly irregular, normal S1 & S2, no rubs, murmurs or gallops. Lungs: CTA b/l, no wheezes or crackles. Abdomen: Soft, non-tender, no rigidity. Extremities: No edema Neurological:Normal cognition and motor skills. Rest of the physical exam is non contributory - Patient Status Disposition: Home, Self-Care Condition: Good Functional capacity at discharge: independent ambulation Overall status at discharge: patient is back to baseline - Discharge Instructions Follow Up With: [facility] [Primary Care Provider[facility] - - Diet and Activity Activity: resume usual activities as tolerated Diet: diabetic diet, low salt diet
--- NOTE | 2018-11-08 11:08 | Cardiology Consult Note ---
<Victorino Martini - Last Filed: 11/08/18 11:52> Date of Encounter: 11/08/18 Time of Encounter: 11:52 Assessment and Plan (1) Atrial fibrillation Current Visit: Yes Status: Acute H/o atrial fibrillation/flutter. S/p atrial fibrillation ablation at OSH 11/04/18 per patient. (He declined signing release of information.) Currently rate controlled atrial flutter. Continue lopressor. 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 SOB- not clear if related to ablation. SOB can occur after ablations at times. TTE was completed to r/o pericardial effusion and no effusion seen. Troponin elevation suspected after ablation. Troponin trending down. Device check shows one episode of six hours of atrial tachycardia. Initial EKG shows atrial pacing with no acute ST changes. Telemetry shows rate controlled atrial flutter. AVg HR over last 12 hours is 69BPM. Pt reports symptoms resolved. No further testing recommended. Qualifiers: Atrial fibrillation type: paroxysmal Qualified Code(s): I48.0 - Paroxysmal atrial fibrillation (2) SOB (shortness of breath) Current Visit: Yes Status: Acute Now resolved. CXR showed possible bronchitis vs pulmonary vascular congestion. Primary team following. Good pulmonary toileting recommended. No significant fluid overload on exam. TTE shows preserved EF. Mild PAH. (3) Elevated troponin Current Visit: Yes Status: Acute Troponin elevation likely due to recent ablation. Downtrending. TTE shows preserved EF. Pt denies chest pain. No further testing recommended. Discussion w patient/family: The assessment and plan as outlined above was discussed with the patient and/or family members who expressed understanding and agreement. All questions were answered. Thank you for involving us in the care of your patient. Please call with any questions. History of Present Illness Consult date: 11/08/18 Requesting physician: Jared Funes Consult reason: SOB s/p recent ablation Chief complaint: SOB with exertion History of present illness: Mr. Gaxiola is a 73 year old male with past medical history significant for CAD, ICD, atrial fibrillaion s/p recent atrial fibrillation ablation 11/04/18, HTN, and DM. He presents with the c/o SOB with exertion and laying flat starting this week. Symptoms started after having an atrial fibrillation ablation at [facility] in [place]. He denies chest pain. Denies fever or cough. Denies PND, weight gain, or edema. ED work-up revealed elevated troponin. Per ED report his assistant softball coach was notified of findings. He was expected to have troponin elevation s/p ablation. Observation and TTE was recommended. On my exam patient states that his SOB has resolved. He ambulated in the hallway this morning with no problem. He states he did not feel that bad and that he only came because his family made him. He Follows with Dr. Whiting in [place]. Past Med Surg Social Fam HX - Past Medical History Attestation: Yes The following information was validated with the patient. Medical history: atrial fibrillation, coronary artery disease, CVA, diabetes, hyperlipidemia, hypertension, myocardial infarction, renal disease, TIA Additional medical history: prostate CA Psychiatric history: no psych history - Past Surgical History Surgical History: pacemaker/AICD Additional surgical history: Catheter ablation - Social History Smoking Status: Former smoker Alcohol use: none Drug use: none - Family History Mother Living Status: Hx Family Cancer: Yes (breast) Hx Family Endocrine Disorder: Yes (DM) Father Living Status: Medications and Allergies Albuterol Sulfate [Albuterol Inhaler] 2 puff IH TID PRN 04/08/18 [History] Apixaban [Eliquis] 5 mg PO BID 04/08/18 [History] Cetirizine HCl [All Day Allergy] 5 mg PO DAILY 04/08/18 [History] Cholecalciferol (Vitamin D3) [Children's Vitamin D3] 2,000 mg PO DAILY 04/08/18 [History] Fenofibrate Nanocrystallized [Fenofibrate] 145 mg PO DAILY 04/08/18 [History] Guaifenesin [Cough Syrup] 200 mg PO Q4HR PRN 04/08/18 [History] Insulin Glargine,Hum.rec.anlog [Basaglar Haseebpen U-100] 86 unit SQ HS 04/08/18 [History] Losartan [Cozaar] 75 mg PO DAILY 04/08/18 [History] Metformin HCl [Glucophage] 1,000 mg PO BID 04/08/18 [History] Metoprolol Tartrate [Lopressor] 50 mg PO BID 04/08/18 [History] Nitroglycerin [Nitrostat] 0.4 mg SL PRN PRN 04/08/18 [History] [place]-3 Acid Ethyl Esters [Triklo] 4 gm PO DAILY #0 04/08/18 [History] Omeprazole [PriLOSEC] 20 mg PO DAILY 04/08/18 [History] Tamsulosin HCl [Flomax] 0.4 mg PO BID 04/08/18 [History] glipiZIDE [Glipizide] 10 mg PO BID 04/08/18 [History] guaiFENesin [Guaifenesin] 200 mg PO TID PRN 04/08/18 [History] Amlodipine Besylate 10 mg PO DAILY 11/07/18 [History] Aspirin 325 mg PO DAILY 11/07/18 [History] Atorvastatin Calcium [Lipitor] 40 mg PO HS 11/07/18 [History] Isosorbide MONOnitrate [Isosorbide Mononitrate ER] 120 mg PO DAILY 11/07/18 [History] Mineral Oil 15 ml PO HS PRN 11/07/18 [History] Vit A/Vit C/Vit E/Zinc/Copper [Preservision Areds Tablet] 1 tab PO BID 11/07/18 [History] Allergy/AdvReac Type Severity Reaction Status Date / Time codeine Allergy See Verified 04/08/18 15:29 Comments Procaine [From Novocain] Allergy See Verified 04/08/18 15:29 Comments All Systems Review: The remainder of the systems were reviewed and are negative Physical Examination Vital Signs, Last 4 Hours Temp Pulse Resp BP Pulse Ox 11/08/18 07:36 98.0 F 61 17 137/78 93 General: Conversant, No Apparent Distress HEENT: Atraumatic, Normocephaly, Mucus Membranes Moist Neck: No JVD, Normal carotid pulses Cardiac: Other (Irregular) Lungs: Normal Breath Sounds, No Wheeze, Rales, Rhonchi Neuro: Alert and responsive, No focal deficits noted Abdomen: Soft, Non-Tender Skin: No rashes noted on visualized skin Musculoskeletal: No Chest Wall Tenderness Extremities: No Clubbing, No Cyanosis, No Edema, Normal Pulses Results 11/07/18 07:15 11/07/18 07:15 Lab Results 11/07/18 12:58 Troponin I 0.24 H* - Imaging and Cardiology Chest Xray: report reviewed Echo: report reviewed - EKG Interpretation EKG results cardiology: personally reviewed Consult Discharge Plan - Plan Instructions: Heart Failure (DC), Atrial Flutter (DC), Atrial Fibrillation (DC), Chest Pain (DC) [facility]errals: [facility] [Primary Care Provider[facility] - 11/09/18 2:30 pm (Please follow up at schedled.) <Sheron Raines - Last Filed: 11/08/18 13:19> Date of Encounter: 11/08/18 - Attending Attestation I examined this patient and my medical decision-making was reviewed with the Resident Physician. I agree with the documented findings, disposition and treatment plan as described. Mr. Gaxiola presents with SOB after having recently undergone atrial fibrillation ablation. ECG's reviewed demonstrating atrial pacing. Intermittently see on telemetry is atrial flutter. At the bedside he is comfortable in NAD, hemodynamically stable not requiring supplemental oxygen and feeling better. Spoke with the patient's Cardiac EP while in the patient room and discussed his case. No patient complications hayde-procedurally. Patient reports his breathing is better. He denies any difficulty swallowing. Echo returned without effusion. CXR on admission demonstrated mild pulmonary vascular congestion. Patient declined IV lasix at that time but is open to a one time dose now. Discussed but decided against CT chest at this time since he has clinically improved. Atrial pacing observed, possibly underlying AFL seen intermittently on telemetr y. On anticoagulation. No further Cardiac workup warranted while hospitalized. 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 Will sign off. Please call with questions. Assessment and Plan Discussion w patient/family: The assessment and plan as outlined above was discussed with the patient and/or family members who expressed understanding and agreement. All questions were answered. Thank you for involving us in the care of your patient. Please call with any questions. History of Present Illness History of present illness: Mr. Gaxiola is a 73 year old male All Systems Review: The remainder of the systems were reviewed and are negative Physical Examination Vital Signs, Last 4 Hours Temp Pulse Resp BP Pulse Ox 11/08/18 11:45 97.5 F L 67 17 142/80 93 Results 11/07/18 07:15 11/07/18 07:15 Lab Results 11/07/18 12:58 Troponin I 0.24 H*
[2018-11-08] MEDS ORDERED: Isovue-370 500 ML BOTTLE IVP ONE (11:15)
[2018-11-08 11:50] VITALS: BP 142/80
[2018-11-08] MEDS ORDERED: Furosemide 40 MG/4 ML VIAL IVP ONE (12:05)
--- NOTE | 2018-11-08 21:59 | Electrocardiograph Report ---
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
== END 2018-11-08 13:50 | disposition home or self-care (01) | DRG 204 ==
LOC: 2ANU 13:48 → EMEROOARM 13:48 → 2ANU 20:39
PROVIDERS: ADMIT Internal Medicine; ATTEND Internal Medicine